=== PATIENT | female | born 1965 | race Caucasian/White ===

== ENCOUNTER 2017-08-22 05:25 | Emergency (ER) | payer OTHER, BC ==
[2017-08-22] MEDS ORDERED: Diltiazem 25 MG/5 ML SDV IVPUSH STA (05:53)
[2017-08-22] MEDS ORDERED: Diltiazem 125 MG in Sodium Chloride 0.9% 100 ML IV SCH (06:00)
[2017-08-22] MEDS ORDERED: Sodium Chloride 0.9% 1,000 ML ONE (06:02)
[2017-08-22] MEDS ORDERED: Sodium Chloride 0.9% 1,000 ML IV SCH (06:15)
--- NOTE | 2017-08-22 06:18 | EDM.PDOC ---
<Bg Hamm - Last Filed: 08/22/17 11:30> ED HPI GENERAL MEDICAL PROBLEM - General Chief Complaint: Cardiovascular Problem Stated Complaint: sob rapid heart beat Time Seen by Provider: 08/22/17 05:41 - Related Data Allergies Allergy/AdvReac Type Severity Reaction Status Date / Time cephalexin [From Keflex] Allergy Cannot Verified 08/22/17 05:31 Remember Sulfa (Sulfonamide Allergy Cannot Verified 08/22/17 05:31 Antibiotics) Remember Home Meds: Home Meds Apixaban [Eliquis] 5 mg PO BID 08/22/17 [History] Flecainide Acetate 50 mg PO BID 08/22/17 [History] Levothyroxine [Synthroid] 50 mcg PO DAILY 08/22/17 [History] Course - Vital Signs Last Recorded V/S: Last Vital Signs Temp 35.7 C 08/22/17 05:32 Pulse 87 08/22/17 08:35 Resp 16 08/22/17 08:35 BP 119/63 08/22/17 08:35 Pulse Ox 96 08/22/17 08:35 - Orders/Labs/Meds Labs: Laboratory Tests 08/22/17 08/22/17 08/22/17 Range/Units 05:35 05:35 05:35 WBC 5.74 (3.98-10.04) K/mm3 RBC 4.70 (3.98-5.22) M/mm3 Hgb 13.9 (11.2-15.7) gm/L Hct 41.2 (34.1-44.9) % MCV 87.7 (79.4-94.8) fl MCH 29.6 (25.6-32.2) pg MCHC 33.7 (32.2-35.5) g/dl RDW Std Deviation 41.1 (36.4-46.3) fL Plt Count 276 (182-369) K/mm3 MPV 10.0 (9.4-12.3) fl Neutrophils % (Manual) 69 H (40-60) % Band Neutrophils % 0 (0-10) % Lymphocytes % (Manual) 26 (20-40) % Atypical Lymphs % 0 % Monocytes % (Manual) 3 (2-10) % Eosinophils % (Manual) 2 (0.7-5.8) % Basophils % (Manual) 0 L (0.1-1.2) Platelet Estimate Adequate RBC Morph Comment Normal PT 9.6 (8.0-13.0) SECONDS INR 0.89 APTT 28 (22-36) SECONDS D-Dimer, Quantitative 1.18 H (0.19-0.59) mg/L Sodium 143 (136-145) mEq/L Potassium 3.7 (3.5-5.1) mEq/L Chloride 106 (98-107) mEq/L Carbon Dioxide 28 (21-32) mEq/L Anion Gap 12.7 (5-15) BUN 24 H (7-18) mg/dL Creatinine 1.1 H (0.55-1.02) mg/dL Est Cr Clr Drug Dosing 57.28 mL/min Estimated GFR (MDRD) 53 (>60) mL/min BUN/Creatinine Ratio 21.8 H (14-18) Glucose 105 (74-106) mg/dL Calcium 9.6 (8.5-10.1) mg/dL Total Bilirubin 0.2 (0.2-1.0) mg/dL AST 30 (15-37) U/L ALT 38 (14-59) U/L Alkaline Phosphatase 113 (46-116) U/L Troponin I < 0.017 (0.00-0.056) ng/mL NT-Pro-B Natriuret Pep 113 (0-125) pg/mL Total Protein 7.9 (6.4-8.2) g/dl Albumin 3.9 (3.4-5.0) g/dl Globulin 4.0 gm/dL Albumin/Globulin Ratio 1.0 (1-2) Meds: Medications Discontinued Medications Generic Name Dose Route Start Last Admin Trade Name Freq PRN Reason Stop Dose Admin Diltiazem HCl 10 mg 08/22/17 05:53 08/22/17 06:02 Diltiazem IVPUSH 08/22/17 05:54 10 mg ONETIME STA Administration Diltiazem HCl 125 mg/ Sodium 125 mls @ 10 mls/hr 08/22/17 06:00 08/22/17 06: 08 Chloride IV 10 mg/hr TITRATE BRITTANY 10 mls/hr Protocol Administration 10 MG/HR Sodium Chloride Confirm 08/22/17 06:02 08/22/17 06:11 Normal Saline Administered 08/22/17 06:03 Not Given Dose 1,000 mls @ as directed .ROUTE .STK-MED ONE Sodium Chloride 1,000 mls @ 50 mls/hr 08/22/17 06:15 08/22/17 06:11 Normal Saline IV 50 mls/hr ASDIRECTED [facility] Administration - Re-Assessments/Exams Free Text/Narrative Re-Assessment/Exam: 08/22/17 09:31 : Cardiazem drip will be discontinued she remains in the 80s. See how she does without the medication 08/22/17 11:05 ; She remained fine in the 80s and low 90s while lying. However when I stood up she immediately went to the 06/11/29 area. I therefore did speak with her hat cleaner Dr. Og Arrington at [facility] in [place] and he recommended starting her back on low-dose metoprolol. We discussed this at the previous usage of this medication precipitated severe headaches and the patient couldn't tolerate the medication. I therefore faxed him a copy of the ECG and after looking at it he agreed that the QT interval was okay and that she could tolerate the increased dose of flexion 9-100 mg twice daily. Therefore she took a next dose 50 mg while in the ED. Departure - Departure Time of Disposition: 11:15 Disposition: Home, Self-Care 01 Condition: Fair Clinical Impression: Atrial fibrillation with RVR Instructions: Atrial Fibrillation, [id number] Referrals: Katy Wolfe MD [Primary Care Provider] - Forms: ED Department Discharge, ED Return to Work/School Form Additional Instructions: Evaluation the emergency room overnight in regards to development of palpitations after finishing work today and recurrence of age fibrillation identified on ECG with rates up as high as 1 35/m. Rate came under good control with Cardizem drip intravenously. We stopped the medication for now and you remained in the 80s and 90s while at rest. However soon as used to that by bedside heart rate went up to 125-1 35/m. I therefore spoke with your hat cleaner Dr. Burden and he recommends increasing your Flecainide to 100 mg twice daily to bring rate under control. As you indicated you a follow-up appoint with him next Friday. 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 She is unable to describe palpitations, other than an awareness of her heartbeat. She states that she had similar symptoms in the past - she was diagnosed with atrial fibrillation in July 2016. A transesophageal echocardiogram demonstrated a left atrial appendage thrombus. The patient was started on Eliquis and flecainide. She missed some doses of these around a month ago, but none recently. She states that she has not had any episodes of atrial fibrillation since she was started on the flecainide. The patient states that she stands a lot at work. The patient's PCP is Dr. Wolfe in [place]. Her Lap Maker is Dr. Scott. 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 ARTIST History: Reports: Musculoskeletal History: Reports: Back Pain, Chronic (DDD), Osteoarthritis Psychiatric History: Reports: Depression (untreated) Endocrine/Metabolic History: Reports: Hypothyroidism, Obesity/BMI 30+ - Past Surgical History HEENT Surgical History: Reports: Tonsillectomy GI Surgical History: Reports: Cholecystectomy, Hernia, Abdominal (umbilical) Female Surgical History: Reports: Section (x 1), Hysterectomy, Salpingo-Oophorectomy Neurological Surgical History: Reports: C-Spine (ACDF), Lumbar Spine (x 7; L2- S2 fused) Musculoskeletal Surgical History: Reports: Knee Replacement (left), Other (See Below) (Left thumb repair) Social & Family History - Tobacco Use Smoking Status *Q: Never Smoker - Alcohol Use Alcohol Use History: Yes Alcohol Use Frequency: Rarely - Recreational Drug Use Recreational Drug Use: No - Living Situation & Occupation Living situation: Reports: , with Family Occupation: Employed ([employer]) ED ROS GENERAL - Review of Systems Review Of Systems: See Below Constitutional: Reports: No Symptoms HEENT: Reports: Other (Viral URI symptoms x 3 days) Respiratory: Reports: No Symptoms Cardiovascular: Reports: No Symptoms Endocrine: Reports: No Symptoms GI/Abdominal: Reports: No Symptoms : Reports: No Symptoms Musculoskeletal: Reports: No Symptoms Skin: Reports: No Symptoms Neurological: Reports: No Symptoms Psychiatric: Reports: No Symptoms Hematologic/Lymphatic: Reports: No Symptoms Immunologic: Reports: No Symptoms ED EXAM, GENERAL - Physical Exam Exam: See Below Exam Limited By: No Limitations General Appearance: Alert, WD/WN, No Apparent Distress Eye Exam: Bilateral Eye: Normal Inspection Ears: Normal External Exam, Hearing Grossly Normal Nose: Normal Inspection, No Blood Throat/Mouth: Normal Inspection, Normal Lips, Normal Voice, No Airway Compromise Head: Atraumatic, Normocephalic Neck: Normal Inspection, Full Range of Motion Respiratory/Chest: No Respiratory Distress, Lungs Clear, Normal Breath Sounds, No Accessory Muscle Use Cardiovascular: Normal Peripheral Pulses, Regular Rate, Rhythm (A-fib ion the monitor, but too fast to discern irregularity), No Edema, No Gallop, No JVD, No Murmur, No Rub, Tachycardia Peripheral Pulses: 4+: Radial (L), Radial (R) GI/Abdominal: Normal Bowel Sounds, Soft, Non-Tender, No Organomegaly, No Distention, No Abnormal Bruit, No Mass, Other (Obese) (Female) Exam: Deferred Rectal (Female) Exam: Deferred Back Exam: Normal Inspection, Full Range of Motion, NT Extremities: Normal Inspection, Normal Range of Motion, No Pedal Edema, Normal Capillary Refill Neurological: Alert, Oriented, Normal Cognition, No Motor/Sensory Deficits Psychiatric: Normal Affect Skin Exam: Warm, Dry, Intact, Normal Color, No Rash EKG INTERPRETATION EKG Date: 08/22/17 Time: 05:34 Rhythm: A-Fib Rate (Beats/Min): 145 [place]: Normal P-Wave: Absent QRS: Normal ST-T: Normal QT: Normal Comparison: NA - No Prior EKG Course - Orders/Labs/Meds Labs: Laboratory Tests 08/22/17 08/22/17 08/22/17 Range/Units 05:35 05:35 05:35 WBC 5.74 (3.98-10.04) K/mm3 RBC 4.70 (3.98-5.22) M/mm3 Hgb 13.9 (11.2-15.7) gm/L Hct 41.2 (34.1-44.9) % MCV 87.7 (79.4-94.8) fl MCH 29.6 (25.6-32.2) pg MCHC 33.7 (32.2-35.5) g/dl RDW Std Deviation 41.1 (36.4-46.3) fL Plt Count 276 (182-369) K/mm3 MPV 10.0 (9.4-12.3) fl Neutrophils % (Manual) 69 H (40-60) % Band Neutrophils % 0 (0-10) % Lymphocytes % (Manual) 26 (20-40) % Atypical Lymphs % 0 % Monocytes % (Manual) 3 (2-10) % Eosinophils % (Manual) 2 (0.7-5.8) % Basophils % (Manual) 0 L (0.1-1.2) Platelet Estimate Adequate RBC Morph Comment Normal PT 9.6 (8.0-13.0) SECONDS INR 0.89 APTT 28 (22-36) SECONDS D-Dimer, Quantitative 1.18 H (0.19-0.59) mg/L Sodium 143 (136-145) mEq/L Potassium 3.7 (3.5-5.1) mEq/L Chloride 106 (98-107) mEq/L Carbon Dioxide 28 (21-32) mEq/L Anion Gap 12.7 (5-15) BUN 24 H (7-18) mg/dL Creatinine 1.1 H (0.55-1.02) mg/dL Est Cr Clr Drug Dosing 57.28 mL/min Estimated GFR (MDRD) 53 (>60) mL/min BUN/Creatinine Ratio 21.8 H (14-18) Glucose 105 (74-106) mg/dL Calcium 9.6 (8.5-10.1) mg/dL Total Bilirubin 0.2 (0.2-1.0) mg/dL AST 30 (15-37) U/L ALT 38 (14-59) U/L Alkaline Phosphatase 113 (46-116) U/L Troponin I < 0.017 (0.00-0.056) ng/mL NT-Pro-B Natriuret Pep 113 (0-125) pg/mL Total Protein 7.9 (6.4-8.2) g/dl Albumin 3.9 (3.4-5.0) g/dl Globulin 4.0 gm/dL Albumin/Globulin Ratio 1.0 (1-2) - Re-Assessments/Exams Free Text/Narrative Re-Assessment/Exam: 08/22/17 06:40 Two-view chest radiograph appears to be grossly normal. Cardiac silhouette is within normal limits. No pulmonary vascular congestion. No pleural effusions. No focal infiltrate. No pneumothorax. Formal read per the Radiologist pending. 08/22/17 07:00 Following Cardizem IV push and drip, the patient's heart rate is now around 100. Case discussed with Dr. Dunlap, who will come by and evaluate the patient before accepting. 08/22/17 08:[address] Dunlap. Before admitting the patient, she would like the patient to receive her morning dose of Flecainide, then wait a couple of hours to see if the patient converts to a normal sinus rhythm. If she does, then an admission can be avoided. Case then discussed with Dr. Hamm, and care of the patient turned over to him at this time, for change of shift.
--- NOTE | 2017-08-22 07:19 | CR ---
Chest: Two views of the chest were obtained. Comparison: Previous chest x-ray of 09/21/11. Heart size and mediastinum are normal. Lungs are clear. Previous cervical spine surgery is noted. Bony structures are otherwise unremarkable. Surgical clips are seen within the upper abdomen. Impression: 1. Incidental findings. Nothing acute is appreciated on two-view chest x-ray. Diagnostic code #2
== END 2017-08-22 11:41 | disposition home or self-care (01) ==
LOC: JD.ED 05:25
DX: I48.91 Unspecified atrial fibrillation (principal); Z88.1 Allergy status to other antibiotic agents; Z88.2 Allergy status to sulfonamides; Z79.01 Long term (current) use of anticoagulants
CPT/HCPCS: 36415; 71020; 80053; 83880; 84484; 85025; 85379; 85610; 85730; 93005; 96361; 96365; 96366; 96376; 99285; J3490; J7030; J7040; 93010

== ENCOUNTER 2017-10-04 05:17 | Emergency (ER) | payer OTHER, BC ==
[2017-10-04] MEDS ORDERED: Acetaminophen Soln 650 MG/20.3 ML UD Cup PO ONE (06:00)
--- NOTE | 2017-10-04 06:07 | EDM.PDOC ---
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 She states that the pain is all over her left shoulder, and is made worse with any attempt to move her shoulder. No prior left shoulder injury. No trauma to the shoulder, such as something falling or hitting it. The patient has paroxysmal atrial fibrillation and is on Eliquis. She states that her Vibration Technician has instruct her to not take NSAIDs. 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: Musculoskeletal History: Reports: Back Pain, Chronic, Osteoarthritis Other Musculoskeletal History: Spinal fusion and cervical spine fusion Psychiatric History: Reports: Depression Endocrine/Metabolic History: Reports: Hypothyroidism, Obesity/BMI 30+ - Past Surgical History HEENT Surgical History: Reports: Tonsillectomy GI Surgical History: Reports: Cholecystectomy, Hernia, Abdominal Female Surgical History: Reports: Section, Hysterectomy, Salpingo- Oophorectomy Neurological Surgical History: Reports: C-Spine, Lumbar Spine Musculoskeletal Surgical History: Reports: Knee Replacement, Other (See Below) Social & Family History - Family History Family Medical History: Noncontributory - Tobacco Use Smoking Status *Q: Never Smoker - Recreational Drug Use Recreational Drug Use: No - Living Situation & Occupation Living situation: Reports: , with Family Occupation: Employed ([employer]) Review of Systems - Review of Systems Review Of Systems: ROS reveals no pertinent complaints other than HPI. ED EXAM, GENERAL - Physical Exam Exam: See Below Exam Limited By: No Limitations General Appearance: Alert, WD/WN, No Apparent Distress Extremities: Other (No visible abnormality to the left shoulder, such as swelling, erythema, ecchymosis, or abrasion. There is tenderness to palpation across the entire left shoulder. Significant pain is induced with attempts at abduction against resistance, but also with adduction against resistance. Less pain is induced with attempts at flexion, extension, internal rotation, and external rotation against resistance. Pain is also induced with PROM when the arm is brought up above shoulder height. Neurovascular status of the left upper extremity is intact.) Course - Vital Signs Last Recorded V/S: Last Vital Signs Temp 37.0 C 10/04/17 05:26 Pulse 69 10/04/17 05:26 Resp 16 10/04/17 05:26 BP 118/50 L 10/04/17 05:26 Pulse Ox 92 L 10/04/17 05:26 - Orders/Labs/Meds Orders: Active Orders 24 hr Category Date Time Status Acetaminophen [Tylenol] Med 10/04/17 06:00 Once 650 mg PO ONETIME ONE Medication Orders Acetaminophen (Tylenol) 650 mg PO ONETIME ONE Stop: 10/04/17 06:01 Meds: Medications Generic Name Dose Route Start Last Admin Trade Name Felipeq PRN Reason Stop Dose Admin Acetaminophen 650 mg 10/04/17 06:00 Tylenol PO 10/04/17 06:01 ONETIME ONE - Re-Assessments/Exams Free Text/Narrative Re-Assessment/Exam: 10/04/17 06:02 The patient presents with left shoulder pain that developed tonight while lowering boxes of candy from an upper shelf to a lower shelf while at work. On examination, she has entire left shoulder tenderness that is not a focal. Pain is induced primarily with abduction of the shoulder, however, she also has pain with adduction and even with passive range of motion when I lift her arm above shoulder height. I am not aware of any particular type of injury that could explain these findings - the closest that I can come to is deltoid muscle strain. For today's purposes, I am recommending that she take [id number] Tylenol (she has been told that she should not take ibuprofen), and if her pain continues, then have her follow-up with Ortho next week. As there was no trauma to the shoulder, and x-ray would be of no use. If an imaging study is required, it would be a MRI. Departure - Departure Time of Disposition: 06:04 Disposition: Home, Self-Care 01 Condition: Good Clinical Impression: Strain of left deltoid muscle - Discharge Information Referrals: PCP,Not In Area [Primary Care Provider] - Chaz Velasquez MD [Physician] - Additional Instructions: You were seen in the emergency room for left shoulder pain that developed at work when you were lowering boxes of candy from an upper shelf to a lower shelf. The exact cause of your shoulder pain is not clear, however, you have MOST LIKELY strained your left deltoid muscle. Take [id number] Tylenol as needed for discomfort. Minimize the use of your left shoulder over the next few days. A work restrictions form has been filled out. If your pain continues, please follow-up with the Orthopedic Surgeon Dr. Velasquez next week. If any other problems, please do not hesitate to return to the ER. - My Orders Last 24 Hours: My Active Orders 10/04/17 06:00 Acetaminophen [Tylenol] 650 mg PO ONETIME ONE - Assessment/Plan Last 24 Hours: My Active Orders 10/04/17 06:00 Acetaminophen [Tylenol] 650 mg PO ONETIME ONE
== END 2017-10-04 06:18 | disposition home or self-care (01) ==
LOC: JD.ED 05:17
DX: S46.812A Strain of other muscles, fascia and tendons at shoulder and upper arm level, left arm, initial encounter (principal); Z88.6 Allergy status to analgesic agent; Z88.2 Allergy status to sulfonamides; Z79.899 Other long term (current) drug therapy; X58.XXXA Exposure to other specified factors, initial encounter
CPT/HCPCS: 99283; A9270; 99282

== ENCOUNTER 2017-12-06 23:37 | Emergency (ER) | payer BC, OTHER ==
[2017-12-06] MEDS ORDERED: Nitroglycerin/D5W 25 MG/250 ML BOTTLE IV SCH (23:45)
[2017-12-06] MEDS ORDERED: Aspirin 81 MG Tab.Chew PO ONE (23:59)
--- NOTE | 2017-12-07 00:01 | EDM.PDOC ---
ED HPI GENERAL MEDICAL PROBLEM - General Chief Complaint: Chest Pain Stated Complaint: CHEST PAINS Time Seen by Provider: 12/06/17 23:57 Source of Information: Reports: Patient History Limitations: Reports: No Limitations - History of Present Illness INITIAL COMMENTS - FREE TEXT/NARRATIVE: 52-year-old female presents the ED with retrosternal chest pain that kind of comes and goes i.e. spastic component since about 1800 hrs. last evening. He was present before she had supper last night. She has no difficulty swallowing. Pain is about the same now as it was 6 hours ago. She has a history of intermittent atrial fibrillation and apparently did have an intramural clot on one of her valves in the past. It's unclear whether she had pulmonary embolism. She remains on Eliquis and has not missed any doses. She is aware of a fluttering sensation in her chest. She's had previous cholecystectomy she has a known hiatal hernia. She is burping and belching but not sure that is providing any relief of the discomfort. Pain radiates through to her back intrascapular early it'll radiate up towards her throat and up into her right anterior chest at times as well. Pain again has a strong colicky or crampy spastic component she has no known coronary disease. She is a nonsmoker. Does feel a bit more short of breath than normal. Denies cough or sputum production denies fever or chills. Onset Date: 12/06/17 Onset Time: 18:00 Duration: Hour(s): Location: Reports: Chest (Epigastrium radiating up into the central chest neck at times.), Back (Him pain intrascapular early as well.) Quality: Reports: Other (Pain is constant with a colicky/spastic like component.) Improves with: Reports: None (Tums or Rolaids. Has no heartburn at this time) Worsens with: Reports: None Context: Reports: Other (Came on spontaneously.). Denies: Activity, Exercise, Lifting, Sick Contact, Trauma Associated Symptoms: Reports: Chest Pain, Shortness of Breath. 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) (None.) Chest Pain Score (Numeric/FACES): 5 - Related Data Allergies Allergy/AdvReac Type Severity Reaction Status Date / Time cephalexin [From Keflex] Allergy Cannot Verified 12/06/17 23:46 Remember Sulfa (Sulfonamide Allergy Cannot Verified 12/06/17 23:46 Antibiotics) Remember Home Meds: Home Meds Apixaban [Eliquis] 5 mg PO BID 08/22/17 [History] Flecainide Acetate 100 mg PO BID 08/22/17 [History] Levothyroxine [Synthroid] 50 mcg PO DAILY 08/22/17 [History] Docusate Sodium [Colace] 100 mg PO DAILY 10/04/17 [History] Dicyclomine [Bentyl] 20 mg PO Q6H PRN #12 tablet 12/07/17 [Rx] Past Medical History Cardiovascular History: Reports: Afib (Has intermittent or paroxysmal atrial fibrillation and is on Eliquis daily. Previously identified by transesophageal echo to have a valvular thrombus. She does not believe that she had any diagnosis of pulmonary embolism.). Denies: Hypertension [employer] History: Reports: Musculoskeletal History: Reports: Back Pain, Chronic, Osteoarthritis Other Musculoskeletal History: Spinal fusion and cervical spine fusion Psychiatric History: Reports: Depression Endocrine/Metabolic History: Reports: Hypothyroidism, Obesity/BMI 30+ - Past Surgical History HEENT Surgical History: Reports: Tonsillectomy GI Surgical History: Reports: Cholecystectomy, Hernia, Abdominal (Umbilical hernia repair) Female Surgical History: Reports: Section, Hysterectomy, Salpingo- Oophorectomy Neurological Surgical History: Reports: C-Spine, Lumbar Spine Musculoskeletal Surgical History: Reports: Knee Replacement, Other (See Below) Social & Family History - Family History Family Medical History: Noncontributory - Tobacco Use Smoking Status *Q: Never Smoker - Caffeine Use Caffeine Use: Reports: None - Recreational Drug Use Recreational Drug Use: No - Living Situation & Occupation Living situation: Reports: , with Family Occupation: Employed ([employer]) [facility] - Review of Systems Review Of Systems: See Below Constitutional: Denies: Fever, Chills, Malaise, Weakness, Fatigue, Night Sweats , Diaphoresis, Decreased Appetite, Weight Loss HEENT: Reports: No Symptoms Respiratory: Reports: Shortness of Breath. Denies: Wheezing, Pleuritic Chest Pain (mild), Cough, Sputum, Hemoptysis Cardiovascular: Reports: Chest Pain, Dyspnea on Exertion, Palpitations (At time sometimes aware of palpitations or fluttering feeling in her chest she has this at this time however the monitor shows sinus rhythm at 58/m). Denies: Blood Pressure Problem, Claudication (See history present illness), Edema, Lightheadedness, Orthopnea Endocrine: Reports: No Symptoms GI/Abdominal: Reports: Abdominal Pain (Some pain in the epigastrium that radiates up into the anterior retrosternal chest.). Denies: Constipation, Diarrhea, Decreased Appetite, Difficulty Swallowing, Distension, Flatus, Hematemesis, Hematochezia : Reports: No Symptoms Musculoskeletal: Reports: Neck Pain, Back Pain, Joint Pain, Other (Has had surgery both low back and neck.) Skin: Reports: No Symptoms (Has had right total knee replacement) Neurological: Reports: No Symptoms Psychiatric: Reports: No Symptoms Hematologic/Lymphatic: Reports: No Symptoms Immunologic: Reports: No Symptoms ED EXAM, GENERAL - Physical Exam Exam: See Below Exam Limited By: No Limitations General Appearance: Alert, WD/WN, Anxious, Mild Distress Eye Exam: Bilateral Eye: Normal Inspection (No jaundice) Head: Atraumatic, Normocephalic Neck: Normal Inspection, Supple, Non-Tender, Full Range of Motion. No: Carotid Bruit, Lymphadenopathy (L), Lymphadenopathy (R) Respiratory/Chest: No Respiratory Distress, Lungs Clear, Normal Breath Sounds, Chest Non-Tender. No: Crackles, Rales, Rhonchi, Pleural Rub, Accessory Muscle Use, Retractions Cardiovascular: Normal Peripheral Pulses, Regular Rate, Rhythm, No Edema, No Gallop, No JVD, No Murmur. No: JVD Peripheral Pulses: 2+: Posterior Tibial (L), Posterior Tibial (R), Dorsalis Pedis (L), Dorsalis Pedis (R) GI/Abdominal: Normal Bowel Sounds, Soft, Non-Tender, No Organomegaly, Other ( Multiple abdominal incisions from previous surgeries. Particularly curvilinear surgical scar above the umbilicus.) Back Exam: Normal Inspection, Full Range of Motion, Other. No: CVA Tenderness ( L) (Previous lower lumbar surgical scar appreciated), CVA Tenderness (R) Extremities: Normal Inspection, Normal Range of Motion, Non-Tender, No Pedal Edema Neurological: Alert, Oriented, CN II-XII Intact, Normal Cognition Psychiatric: Normal Affect, Normal Mood Skin Exam: Warm, Dry, Intact, Normal Color, No Rash EKG INTERPRETATION EKG Date: 12/06/17 Time: 23:50 Rhythm: NSR Rate (Beats/Min): 64 [place]: RAD-Right [place] Deviation P-Wave: Present (First-degree AV block) QRS: Other (Early R-wave transition suggesting right ventricular hypertrophy/ septal hypertrophy pattern. Decreased voltage throughout the limb leads.) ST-T: Other (Diffuse T-wave inversion V2 to be 5. B6 is not available for interpretation. Q waves present in leads 3 and aVF compatible with an old inferior wall myocardial infarction.) QT: Prolonged (Moderately prolonged) EKG Interpretation Comments: Abnormal ECG. Course - Vital Signs Last Recorded V/S: Last Vital Signs Temp 36.1 C 12/06/17 23:46 Pulse 60 12/06/17 23:46 Resp 18 12/06/17 23:46 BP 123/53 L 12/06/17 23:46 Pulse Ox 96 12/06/17 23:46 - Orders/Labs/Meds Orders: Active Orders 24 hr Category Date Time Status EKG Documentation Completion [RC] STAT Care 12/06/17 23:57 Active Oxygen Therapy [RC] ASDIRECTED Care 12/06/17 23:58 Active Chest 1V Frontal [CR] Stat Exams 12/06/17 23:57 Taken Dicyclomine [Bentyl] Med 12/07/17 01:32 Once 20 mg PO ONETIME ONE Nitroglycerin/D5W [Nitroglycerin 25 MG/D5W 250 ML] Med 12/06/17 23:45 Active 25 mg in 250 ml IV ASDIRECTED Sodium Chloride 0.9% [Normal Saline] 1,000 ml Med 12/07/17 01:15 Active IV ASDIRECTED Medication Orders Nitroglycerin/Dextrose (Nitroglycerin 25 Mg/D5w 250 Ml) 25 mg in 250 mls @ 6 mls/hr IV ASDIRECTED [facility] PRN Reason: 10 MCG/MIN Last Admin: 12/07/17 00:07 Dose: 10 mcg/min, 6 mls/hr Sodium Chloride (Normal Saline) 1,000 mls @ 999 mls/hr IV ASDIRECTED [facility] Labs: Laboratory Tests 12/06/17 12/06/17 12/06/17 Range/Units 23:53 23:53 23:53 WBC 5.17 (3.98-10.04) K/mm3 RBC 4.77 (3.98-5.22) M/mm3 Hgb 13.6 (11.2-15.7) gm/L Hct 40.4 (34.1-44.9) % MCV 84.7 (79.4-94.8) fl MCH 28.5 (25.6-32.2) pg MCHC 33.7 (32.2-35.5) g/dl RDW Std Deviation 41.3 (36.4-46.3) fL Plt Count 196 (182-369) K/mm3 MPV 10.7 (9.4-12.3) fl Neutrophils % (Manual) 53 (40-60) % Band Neutrophils % 0 (0-10) % Lymphocytes % (Manual) 28 (20-40) % Atypical Lymphs % 2 % Monocytes % (Manual) 16 H (2-10) % Eosinophils % (Manual) 0 L (0.7-5.8) % Basophils % (Manual) 1 (0.1-1.2) Toxic Granulation 1+ slight Platelet Estimate Adequate Plt Morphology Comment Normal RBC Morph Comment Normal PT 10.0 (8.0-13.0) SECONDS INR 0.94 D-Dimer, Quantitative (0.19-0.59) mg/L Sodium 139 (136-145) mEq/L Potassium 3.7 (3.5-5.1) mEq/L Chloride 102 (98-107) mEq/L Carbon Dioxide 23 (21-32) mEq/L Anion Gap 17.7 H (5-15) BUN 29 H (7-18) mg/dL Creatinine 1.0 (0.55-1.02) mg/dL Est Cr Clr Drug Dosing 63.01 mL/min Estimated GFR (MDRD) 59 (>60) mL/min BUN/Creatinine Ratio 29.0 H (14-18) Glucose 109 H (74-106) mg/dL Calcium 9.0 (8.5-10.1) mg/dL Magnesium 1.9 (1.8-2.4) mg/dl Total Bilirubin 0.3 (0.2-1.0) mg/dL AST 21 (15-37) U/L ALT 25 (14-59) U/L Alkaline Phosphatase 83 (46-116) U/L CK-MB (CK-2) 2.2 (0-3.6) ng/ml Troponin I < 0.017 (0.00-0.056) ng/mL C-Reactive Protein < 0.2 (<1.0) mg/dL NT-Pro-B Natriuret Pep (0-125) pg/mL Total Protein 7.2 (6.4-8.2) g/dl Albumin 3.9 (3.4-5.0) g/dl Globulin 3.3 gm/dL Albumin/Globulin Ratio 1.2 (1-2) 12/06/17 12/06/17 Range/Units 23:53 23:53 WBC (3.98-10.04) K/mm3 RBC (3.98-5.22) M/mm3 Hgb (11.2-15.7) gm/L Hct (34.1-44.9) % MCV (79.4-94.8) fl MCH (25.6-32.2) pg MCHC (32.2-35.5) g/dl RDW Std Deviation (36.4-46.3) fL Plt Count (182-369) K/mm3 MPV (9.4-12.3) fl Neutrophils % (Manual) (40-60) % Band Neutrophils % (0-10) % Lymphocytes % (Manual) (20-40) % Atypical Lymphs % % Monocytes % (Manual) (2-10) % Eosinophils % (Manual) (0.7-5.8) % Basophils % (Manual) (0.1-1.2) Toxic Granulation Platelet Estimate Plt Morphology Comment RBC Morph Comment PT (8.0-13.0) SECONDS INR D-Dimer, Quantitative 0.20 (0.19-0.59) mg/L Sodium (136-145) mEq/L Potassium (3.5-5.1) mEq/L Chloride (98-107) mEq/L Carbon Dioxide (21-32) mEq/L Anion Gap (5-15) BUN (7-18) mg/dL Creatinine (0.55-1.02) mg/dL Est Cr Clr Drug Dosing mL/min Estimated GFR (MDRD) (>60) mL/min BUN/Creatinine Ratio (14-18) Glucose (74-106) mg/dL Calcium (8.5-10.1) mg/dL Magnesium (1.8-2.4) mg/dl Total Bilirubin (0.2-1.0) mg/dL AST (15-37) U/L ALT (14-59) U/L Alkaline Phosphatase (46-116) U/L CK-MB (CK-2) (0-3.6) ng/ml Troponin I (0.00-0.056) ng/mL C-Reactive Protein (<1.0) mg/dL NT-Pro-B Natriuret Pep 54 (0-125) pg/mL Total Protein (6.4-8.2) g/dl Albumin (3.4-5.0) g/dl Globulin gm/dL Albumin/Globulin Ratio (1-2) Meds: Medications Generic Name Dose Route Start Last Admin Trade Name Freq PRN Reason Stop Dose Admin Nitroglycerin/Dextrose 25 mg in 250 mls @ 6 mls/hr 12/06/17 23:45 12/07/17 00 :07 Nitroglycerin 25 Mg/D5w 250 Ml IV 10 mcg/min ASDIRECTED BRITTANY 6 mls/hr 10 MCG/MIN Administration Sodium Chloride 1,000 mls @ 999 mls/hr 12/07/17 01:15 Normal Saline IV ASDIRECTED BRITTANY Discontinued Medications Generic Name Dose Route Start Last Admin Trade Name Freq PRN Reason Stop Dose Admin Aspirin 324 mg 12/06/17 23:59 12/07/17 00:01 Aspirin PO 12/07/17 00:00 324 mg ONETIME ONE Administration Aspirin Confirm 12/07/17 00:04 12/07/17 00:04 Aspirin Administered 12/07/17 00:05 Not Given Dose 324 mg .ROUTE .STK-MED ONE Al Hydroxide/Mg Hydroxide 30 0 ml 12/07/17 01:01 12/07/17 01:09 ml/ Lidocaine HCl 15 ml PO 12/07/17 01:02 45 ml ONETIME ONE Administration Hyoscyamine 0.125 mg 12/07/17 00:58 12/07/17 01:04 Hyomax-Sl SL 12/07/17 00:59 0.125 mg ONETIME ONE Administration Sodium Chloride Confirm 12/07/17 00:04 12/07/17 00:11 Normal Saline Administered 12/07/17 00:05 Not Given Dose 1,000 mls @ as directed .ROUTE .STK-MED ONE Sodium Chloride 1,000 mls @ 100 mls/hr 12/07/17 00:15 12/07/17 00:10 Normal Saline IV 100 mls/hr ASDIRECTED BRITTANY Administration - Radiology Interpretation Free Text/Narrative:: 52-year-old female presents to the ED with retrosternal chest heaviness with a sharp stabbing colicky spastic component at times for the last 6-1/2 hours. Seems to start in her epigastrium and radiated up towards her neck. It is moving around a bit right anterior upper chest and into her intrascapular area over her back at times. Burping and belching doesn't seem to help. She is not aware of any heartburn per se. She has a known hiatal hernia and does take Prilosec daily. She has a history of paroxysmal atrial fibrillation and is on aliquots daily. Previous intramural thrombus on a valve in her heart when she was diagnosed with paroxysmal atrial fibrillation. ECG done in the ED reveals sinus rhythm at 64/m. There is a first-degree AV block a right axis deviation. There is early R-wave transition suggesting right ventricular hypertrophy or septal hypertrophy pattern. There is T-wave inversion from V2 to V5. B6 was not available for interpretation. Therefore I cannot rule out anterior lateral ischemia. QT is moderately prolonged likely due to being on flecainide. There is decreased voltage throughout the limb leads. There are Q waves in leads 3 and aVF compatible with an old inferior wall myocardial infarction. - Re-Assessments/Exams Free Text/Narrative Re-Assessment/Exam: 12/07/17 00:46 chest x-ray done portably is likely magnified. It suggests mild cardiomegaly and mild diffuse vascular congestion. Plan she will be treated as if she is a myocardial infarction until otherwise normal. My initial impression is is likely of esophageal or hiatal hernia origin. Pain is a 1 minutes more intermittent with a sharp stabbing component to it. Started on nitroglycerin at 10 mcg/m. Given aspirin 324 mg chewed. We'll try and obtain other ECGs for comparison purposes from [facility] in [place]. 12/07/17 00:59 still experiencing intermittent sharp spastic type pain central chest. We'll try Levsin 0.125 mg sublingually that this is ineffectual will give a GI cocktail. 12/07/17 01:01 Labs are revealing a normal white count at 5.17. Differential reveals 53% neutrophils no bands 2% atypical lymphocytes reported. Hemoglobin is 13.6 with hematocrit of 40.4. Platelet count is normal 196,000. PT is 10.0 with an INR of 0.94 d-dimer is normal at 0.20. Sodium is 139 potassium is 3.7. Chloride 102 bicarbonate is 23. Anion gap is still elevated at 17.7. BUN is 29. Creatinine is 1.0. BUN is 29 glucose 109. Calcium 9.0. Magnesium normal 1.9 liver function normal cardiac markers show a CK-MB fraction of 2.2 troponin I is less than 0.017. C-reactive protein is less than 0.2. BNP is normal at 54. 12/07/17 01:01 since the initial cardiac enzymes are normal after 6 hours of pain she is considered a cardiac rule out. Pain is GI in origin likely esophageal spasm versus hiatal hernia. I will give her a GI cocktail at this time to see if it alleviates her pain. 12/07/17 01:32 has had very little pain since the GI cocktail was ingested. I will therefore give her Bentyl 20 mg by mouth and discharge her to home. Strongly suspect esophageal spasm likely secondary to hiatal hernia as a cause of her pain. I will write a prescription for Bentyl 20 mg tabs 12 to have on hand and utilize when necessary for similar type pain. Departure - Departure Time of Disposition: 01:33 Disposition: Home, Self-Care 01 Condition: Fair Clinical Impression: Non-cardiac chest pain, Esophageal spasm Prescriptions: Dicyclomine [Bentyl] 20 mg PO Q6H PRN #12 tablet PRN Reason: Abdominal cramps/diarrhea Referrals: Katy Wolfe MD [Primary Care Provider] - Forms: ED Department Discharge Additional Instructions: Evaluation the emergent tonight in regards to epigastric retrosternal chest pain rating up into the neck throat and right upper anterior chest and through to your mid back for at least 6 hours. No associated shortness of breath. ECG reveals no changes when compared to previous ECG dated August 222016. Chest x-ray was within normal limits. All the lab tests were negative for any heart related illness or blood clots. No sign of any abnormalities as far as liver kidneys etc. The pain clinically is that of esophageal spasm or a hiatal hernia right at the juncture of the food pipe were close to the diaphragm into your stomach. It is likely the fluttering feeling that you are expressing is due to diaphragm irritation and fluttering of the diaphragm. There is no evidence of fluttering of the heart during normal sinus rhythm at the time of today's exam. You initially treated for potential cardiac disease due to your history but in light of normal heart markers over 6 hours the heart is not related to this current problem. GI cocktail seemed to alleviate the esophageal spasm pain a good deal. You are given Bentyl 20 mg by mouth before you left the hospital which will take about an hour to work but hopefully the last 6 or 8 hours to relieve further esophageal spasm and/or pain from hiatal hernia. I also wrote a prescription for the same type of medication that can be used on a when necessary as needed basis for similar type pain. Of course further weight reduction might help reduce the frequency of this type of pain. Continue Prilosec 20 mg once daily at bedtime as you have been doing. Will up with personal doctor if any further problems occur - My Orders Last 24 Hours: My Active Orders 12/06/17 23:45 Nitroglycerin/D5W [Nitroglycerin 25 MG/D5W 250 ML] 25 mg in 250 ml IV ASDIRECTED 12/06/17 23:57 EKG Documentation Completion [RC] STAT Chest 1V Frontal [CR] Stat 12/06/17 23:58 Oxygen Therapy [RC] ASDIRECTED 12/07/17 01:15 Sodium Chloride 0.9% [Normal Saline] 1,000 ml IV ASDIRECTED 12/07/17 01:32 Dicyclomine [Bentyl] 20 mg PO ONETIME ONE - Assessment/Plan Last 24 Hours: My Active Orders 12/06/17 23:45 Nitroglycerin/D5W [Nitroglycerin 25 MG/D5W 250 ML] 25 mg in 250 ml IV ASDIRECTED 12/06/17 23:57 EKG Documentation Completion [RC] STAT Chest 1V Frontal [CR] Stat 12/06/17 23:58 Oxygen Therapy [RC] ASDIRECTED 12/07/17 01:15 Sodium Chloride 0.9% [Normal Saline] 1,000 ml IV ASDIRECTED 12/07/17 01:32 Dicyclomine [Bentyl] 20 mg PO ONETIME ONE
[2017-12-07] MEDS ORDERED: Sodium Chloride 0.9% 1,000 ML ONE (00:04)
[2017-12-07] MEDS ORDERED: Aspirin 81 MG Tab.Chew ONE (00:04)
[2017-12-07] MEDS ORDERED: Sodium Chloride 0.9% 1,000 ML IV SCH ×2 (00:15→01:15)
[2017-12-07] MEDS ORDERED: Hyoscyamine 0.125 MG Tab.SL SL ONE (00:58)
[2017-12-07] MEDS ORDERED: Alum Hydrox/Mag Hydrox/Simeth 30 ML, Lidocaine 2% 15 ML PO ONE ×2 (01:01)
[2017-12-07] MEDS ORDERED: Dicyclomine 10 MG Cap PO ONE (01:32)
--- NOTE | 2017-12-07 11:53 | CR ---
Chest: Portable view of the chest was obtained. Comparison: Prior chest x-ray of 08/22/17. Heart size and mediastinum are within normal limits for portable technique. Lungs are clear. Previous cervical spine surgery is noted. Previous lumbar spine surgery is also partially visualized. Impression: 1. Incidental findings. Nothing acute is appreciated on portable chest x-ray. Diagnostic code #2
== END 2017-12-07 01:50 | disposition home or self-care (01) ==
LOC: JD.ED 23:37
DX: K22.4 Dyskinesia of esophagus (principal); I48.91 Unspecified atrial fibrillation; F32.9 Major depressive disorder, single episode, unspecified; E03.9 Hypothyroidism, unspecified; Z79.899 Other long term (current) drug therapy; Z88.2 Allergy status to sulfonamides; Z88.1 Allergy status to other antibiotic agents
CPT/HCPCS: 36415; 71045; 80053; 82553; 83735; 83880; 84484; 85025; 85379; 85610; 86140; 93005; 96365; 99285; A9270; J7040; 93010; 99284-25

== ENCOUNTER 2019-10-14 07:55 | Emergency (ER) | payer BC ==
--- NOTE | 2019-10-14 08:28 | EDM.PDOC ---
ED HPI GENERAL MEDICAL PROBLEM - General Chief Complaint: Respiratory Problem Stated Complaint: COUGHING Time Seen by Provider: 10/14/19 08:12 Source of Information: Reports: Patient History Limitations: Reports: No Limitations - History of Present Illness INITIAL COMMENTS - FREE TEXT/NARRATIVE: 54 year old female presents to the clinic with paroxysmal ,minimally productive cough for 8-9 days. initial illnes started Oct 04 with fever and chills and loss of appetitis with cough --suggestive of influenza. Started Amoxil 2 days ago and now has diarrhea. Appetitis is better. No fever for 4 days. Weak and tired from coughing all night long. Onset: Sudden Onset Date: 10/04/19 (Initial onset of fever chills headache and paroxysmal cough October 04. Seen in the walk-in clinic and told she had a viral infection.) Duration: Day(s):, Constant (Lucho paroxysmal cough disrupting her sleep), Other (. poor appetite and no development of loose diarrhea stools 2 days since starting amoxicillin. ) Location: Reports: Chest, Other (Hoarseness ear pain) Quality: Reports: Ache Severity: Moderate (Antral chest) Improves with: Reports: None Worsens with: Reports: Other (Coughing) Context: Denies: Activity, Exercise, Lifting, Sick Contact, Trauma, Other Associated Symptoms: Reports: Chest Pain ( severe paroxysmal cough interrupting her sleep.), Cough (Intermittent sputum production), cough w sputum, Diaphoresis , Fever/Chills, Headaches, Loss of Appetite (With initial onset of illness not much now.), Malaise ( Update is slowly starting to come back.), Other ( Development of diarrhea the last 2 days since starting amoxicillin.). Denies: No Other Symptoms ( antral chest pain from coughing so much.), Confusion Treatments TECHNOLOGY ASSISTANT: Reports: Acetaminophen, NSAIDS (Advil.) Right Flank Pain Score (Numeric/FACES): 6 - Related Data Allergies Allergy/AdvReac Type Severity Reaction Status Date / Time adhesive tape Allergy Rash Verified 10/14/19 08:09 cephalexin [From Keflex] Allergy Cannot Verified 10/14/19 08:09 Remember clindamycin Allergy Hives Verified 10/14/19 08:09 Sulfa (Sulfonamide Allergy Cannot Verified 10/14/19 08:09 Antibiotics) Remember Home Meds: Home Meds Apixaban [Eliquis] 5 mg PO BID 08/22/17 [History] Flecainide Acetate 100 mg PO BID 08/22/17 [History] Levothyroxine [Synthroid] 50 mcg PO DAILY 08/22/17 [History] Docusate Sodium [Colace] 100 mg PO DAILY 10/04/17 [History] DULoxetine [Cymbalta] 90 mg PO DAILY 09/18/18 [History] Cholecalciferol (Vitamin D3) [Vitamin D3] 1,000 unit PO BEDTIME #30 tablet 09/19 [Rx] Omeprazole Magnesium [Prilosec Otc] 20 mg PO DAILY 11/12/18 [History] atorvaSTATin Calcium [Lipitor] 40 mg PO DAILY 11/12/18 [History] Doxycycline [Vibramycin] 100 mg PO BID #20 cap 10/14/19 [Rx] Hydrocodone/Chlorphen P-Stirex [Hydrocodone-Chlorphen ER Susp] 5 ml PO Q12H PRN #60 ml 10/14/19 [Rx] predniSONE [Prednisone] 20 mg PO BID #10 tablet 10/14/19 [Rx] Past Medical History Cardiovascular History: Reports: Afib, High Cholesterol Respiratory History: Reports: Asthma Gastrointestinal History: Reports: GERD, Hiatal Hernia Other 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 History: hx of bladder infections 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: Musculoskeletal History: Reports: Back Pain, Chronic, Fibromyalgia, Osteoarthritis Other Musculoskeletal History: Spinal fusion and cervical spine fusion Psychiatric History: Reports: Depression Endocrine/Metabolic History: Reports: Hypothyroidism, Obesity/BMI 30+, Vitamin D Deficiency - Infectious Disease History Infectious Disease History: Reports: Chicken Pox - Past Surgical History HEENT Surgical History: Reports: Oral Surgery, Tonsillectomy GI Surgical History: Reports: Cholecystectomy, Hernia, Abdominal Female Surgical History: Reports: Section, Hysterectomy, Salpingo- Oophorectomy Neurological Surgical History: Reports: C-Spine, Lumbar Spine Musculoskeletal Surgical History: Reports: Knee Replacement Social & Family History - Family History Family Medical History: Noncontributory Respiratory: Reports: COPD Musculoskeletal: Reports: Other (See Below) Other Musculoskeletal Family History: brother has MS Endocrine/Metabolic: Reports: Diabetes, Type I Oncologic: Reports: Lung Other Oncologic Family History: mother of lung cancer - Tobacco Use Smoking Status *Q: Never Smoker Second Hand Smoke Exposure: No - Caffeine Use Caffeine Use: Reports: Coffee - Recreational Drug Use Recreational Drug Use: No - Living Situation & Occupation Living situation: Reports: , with Family (Father, sister) Occupation: Employed ([employer]) ED ROS GENERAL - Review of Systems Review Of Systems: See Below Constitutional: Reports: Malaise, Weakness, Fatigue, Decreased Appetite. Denies : Fever, Chills HEENT: Reports: Ear Pain (Bilateral sharp stabbing ear pain.), Other (Very hoarse voice.) Respiratory: Reports: Cough (Severe paroxysmal.), Sputum. Denies: Wheezing, Pleuritic Chest Pain, Hemoptysis, Other Cardiovascular: Reports: Chest Pain (Ventral chest pain from coughing so much.) , Dyspnea on Exertion, Lightheadedness. Denies: Blood Pressure Problem, Claudication, Edema, Orthopnea, Palpitations Endocrine: Reports: Fatigue GI/Abdominal: Reports: Diarrhea (Developed diarrhea the last day and a half), Decreased Appetite ( loose and semi-formed. No blood.) : Reports: No Symptoms Musculoskeletal: Reports: No Symptoms Skin: Reports: No Symptoms Neurological: Reports: Dizziness (With standing.) Psychiatric: Reports: Depression Hematologic/Lymphatic: Reports: No Symptoms (On Cymbalta.) Immunologic: Reports: No Symptoms ED EXAM, GENERAL - Physical Exam Exam: See Below Exam Limited By: No Limitations General Appearance: Alert, WD/WN, No Apparent Distress, Other (Patient is cool and clammy to touch. Temperatures 36.3. Heart rate was 62 and sinus. She has a history of paroxysmal atrial flutter. Respiratory is 19 with sats of 98%. EP 118 /62.) Eye Exam: Bilateral Eye: Normal Inspection, PERRL Ears: Normal TMs Throat/Mouth: Normal Inspection, Normal Lips, Normal Teeth, Normal Oropharynx Head: Atraumatic, Normocephalic Neck: Normal Inspection, Supple, Non-Tender, Full Range of Motion. No: Carotid Bruit, Lymphadenopathy (L), Lymphadenopathy (R), Thyromegaly Respiratory/Chest: No Respiratory Distress, Lungs Clear, Normal Breath Sounds, No Accessory Muscle Use, Other. No: Crackles, Rales, Rhonchi, Wheezing Cardiovascular: Normal Peripheral Pulses, Regular Rate, Rhythm, No Edema, No Gallop, No Murmur (Paroxysmal cough which is relatively nonproductive.), No Rub Peripheral Pulses: 2+: Posterior Tibial (L), Posterior Tibial (R), Dorsalis Pedis (L), Dorsalis Pedis (R) GI/Abdominal: Normal Bowel Sounds, Soft, Non-Tender, No Organomegaly, No Abnormal Bruit, No Mass, Pelvis Stable Back Exam: Normal Inspection, Full Range of Motion. No: CVA Tenderness (L), CVA Tenderness (R) Extremities: Normal Inspection, Normal Range of Motion, Non-Tender, No Pedal Edema Neurological: Alert, Oriented, CN II-XII Intact, Normal Cognition, Normal Gait Psychiatric: Normal Affect, Normal Mood Skin Exam: Intact, Normal Color, No Rash, Cool, Diaphoretic (Feels clammy.) Course - Vital Signs Last Recorded V/S: Last Vital Signs Temp 36.3 C 10/14/19 08:05 Pulse 62 10/14/19 08:05 Resp 19 10/14/19 08:05 BP 118/62 10/14/19 08:05 Pulse Ox 98 10/14/19 08:05 - Orders/Labs/Meds Orders: Active Orders 24 hr Category Date Time Status Chest 1V Frontal [CR] Stat Exams 10/14/19 08:23 Taken - Radiology Interpretation Free Text/Narrative:: 54-year-old female presents the ED for evaluation of severe paroxysmal cough. History of present illness suggest that she started become unwell October 04 with fever chills headache and cough. These symptoms are highly suggestive of influenza. She was seen at the walk-in clinic and diagnosed with a viral infection. Unclear when she was placed on amoxicillin 500-- 3 times a day which she started 2 days ago. She continues to have the paroxysmal cough but the headache is improved and appetite is slowly coming back. Cough is bad enough to interfere with her ability to sleep. She is cool and clammy to touch with no obvious fever. Lungs are clear to stage percussion at this time. Plan 1 view chest x-ray and influenza screen to be done. Suspect she is at the end of her influenza illness and still has the paroxysmal cough but is been 10 days of severe cough. Apparently an x-ray was done and at the time of initial evaluation on October 04 which is 10 days ago. - Re-Assessments/Exams Free Text/Narrative Re-Assessment/Exam: 10/14/19 08:50 portable chest x-ray reveals she is rotated slightly to the left. Silhouette is within normal limits. There is a diffuse vascular congestion pattern with no pneumonia. Influenza screen is negative. Patient will therefore be treated with for for bronchitis with doxycycline 100 mg twice daily for the next 10 days. She will discontinue amoxicillin since it is causing diarrhea. She'll be given pen test cough syrup 5 mils every 12 hours when necessary for cough relief and prednisone 20 mg by mouth twice daily for 5 days to provide relief of inflammation of the upper bronchial tubes and larynx. Departure - Departure Time of Disposition: 08:52 Disposition: Home, Self-Care 01 Condition: Fair Clinical Impression: Bronchitis - Discharge Information *PRESCRIPTION DRUG MONITORING PROGRAM REVIEWED*: Not Applicable *COPY OF PRESCRIPTION DRUG MONITORING REPORT IN PATIENT OLMAN: Not Applicable Prescriptions: Doxycycline [Vibramycin] 100 mg PO BID #20 cap Hydrocodone/Chlorphen P-Stirex [Hydrocodone-Chlorphen ER Susp] 5 ml PO Q12H PRN #60 ml PRN Reason: cough relief predniSONE [Prednisone] 20 mg PO BID #10 tablet Referrals: Sharlene Landaverde, MOLD PRESS OPERATOR [Primary Care Provider] - Forms: ED Department Discharge, ED Return to Work/School Form Additional Instructions: Evaluation the emergent today in regards to persistent paroxysmal cough that is interfering with her sleep. This started a few days before Dinorah. It has persisted. Influenza screen done today is negative. Chest x-ray done today is also negative for pneumonia but does suggest a heavy bronchitis. Treatment is to be antibiotic.Cycrin 100 mg twice daily for the next 10 days to replace amoxicillin which appears to be causing diarrhea. Use Deltasone 20 mg twice daily with breakfast and supper for 5 days to relieve upper airway inflammation and to improve cough over the next 2-3 days. Cough syrup is to be patent as 5 mils every 12 hours as necessary for cough relief. Suggest use a good hour before planning to go to basilar takes about an hour to work. It should not be used if you're going to be driving a motor vehicle or operating machinery that requires a lot of focus. SPECT gradual improvement over the next 3 days. Sepsis Event Note - Evaluation Sepsis Screening Result: No Definite Risk - Focused Exam Vital Signs: Vital Signs Temp Pulse Resp BP Pulse Ox 10/14/19 08:05 36.3 C 62 19 118/62 98 Date Exam was Performed: 10/14/19 Time Exam was Performed: 08:50 - My Orders Last 24 Hours: My Active Orders 10/14/19 08:23 Chest 1V Frontal [CR] Stat - Assessment/Plan Last 24 Hours: My Active Orders 10/14/19 08:23 Chest 1V Frontal [CR] Stat
--- NOTE | 2019-10-14 09:20 | CR ---
Chest: Portable view of the chest was obtained. Comparison: Prior chest x-ray of 11/12/18. Heart size and mediastinum are normal. Previous cervical spine surgery is noted. Lungs are clear no acute parenchymal change. Bony structures are grossly intact. Impression: 1. Nothing acute is seen on portable chest x-ray. Diagnostic code #2 This report was dictated in Mountain Standard Time
== END 2019-10-14 09:08 | disposition home or self-care (01) ==
LOC: JD.ED 07:55
DX: J40 Bronchitis, not specified as acute or chronic (principal); I48.91 Unspecified atrial fibrillation; K21.9 Gastro-esophageal reflux disease without esophagitis; E03.9 Hypothyroidism, unspecified; E66.9 Obesity, unspecified; F32.9 Major depressive disorder, single episode, unspecified; Z88.1 Allergy status to other antibiotic agents; Z91.09 Other allergy status, other than to drugs and biological substances; Z88.2 Allergy status to sulfonamides; Z79.899 Other long term (current) drug therapy
CPT/HCPCS: 71045; 71045-26; 87804; 99283; 99283-25

== ENCOUNTER 2019-12-08 13:46 | Inpatient (IN) | payer BC ==
[2019-12-08] MEDS ORDERED: Sodium Chloride 0.9% 10 ML Syringe FLUSH PRN (14:31)
[2019-12-08] MEDS ORDERED: Diltiazem 50 MG/10 ML SDV IVPUSH ONE (14:32)
[2019-12-08] MEDS ORDERED: Diltiazem 125 MG in Sodium Chloride 0.9% 100 ML IV SCH (14:45)
[2019-12-08] MEDS ORDERED: Sodium Chloride 0.9% 1,000 ML IV SCH (14:45)
--- NOTE | 2019-12-08 16:16 | EDM.PDOC ---
ED HPI GENERAL MEDICAL PROBLEM - General Chief Complaint: Cardiovascular Problem Stated Complaint: AFIB Time Seen by Provider: 12/08/19 14:24 Source of Information: Reports: Patient History Limitations: Reports: No Limitations - History of Present Illness INITIAL COMMENTS - FREE TEXT/NARRATIVE: The patient presents in A-fib with a rapid ventricular response. She says this started about 30 minutes prior to coming in here. She has a history of A-fib. She is on eliquis and flecanide. She has not had trouble in awhile with A- fib. Usually she is in NSR. She has some tightness in her chest and shortness of breath. She has no fever, chills, cough, congestion, runny nose, abdomen pain, nausea or vomiting. Onset: Sudden Duration: Hour(s): (1/2 hour ago) Location: Reports: Chest Quality: Reports: Other (tightness) Severity: Mild Improves with: Reports: None Worsens with: Reports: None Associated Symptoms: Reports: Chest Pain, Shortness of Breath. 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 - Related Data Allergies Allergy/AdvReac Type Severity Reaction Status Date / Time adhesive tape Allergy Rash Verified 12/08/19 14:05 cephalexin [From Keflex] Allergy Cannot Verified 12/08/19 14:05 Remember clindamycin Allergy Hives Verified 12/08/19 14:05 Sulfa (Sulfonamide Allergy Cannot Verified 12/08/19 14:05 Antibiotics) Remember Home Meds: Home Meds Apixaban [Eliquis] 5 mg PO BID 08/22/17 [History] Flecainide Acetate 100 mg PO BID 08/22/17 [History] Levothyroxine [Synthroid] 50 mcg PO DAILY 08/22/17 [History] Docusate Sodium [Colace] 100 mg PO DAILY 10/04/17 [History] DULoxetine [Cymbalta] 90 mg PO DAILY 09/18/18 [History] Cholecalciferol (Vitamin D3) [Vitamin D3] 1,000 unit PO BEDTIME #30 tablet 09/19 [Rx] atorvaSTATin [Lipitor] 0 mg PO DAILY 12/08/19 [History] buPROPion [Wellbutrin] 75 mg PO DAILY 12/08/19 [History] Past Medical History Cardiovascular History: Reports: Afib, Blood Clots/VTE/DVT, High Cholesterol Respiratory History: Reports: Asthma Gastrointestinal History: Reports: GERD, Hiatal Hernia, Irritable Bowel Syndrome 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 History: Reports: UTI, Recurrent Other 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 History: hx of bladder infections 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: Musculoskeletal History: Reports: Back Pain, Chronic, Fibromyalgia, Osteoarthritis Other Musculoskeletal History: Spinal fusion and cervical spine fusion Neurological History: Reports: Headaches, Chronic Psychiatric History: Reports: Depression Endocrine/Metabolic History: Reports: Hypothyroidism, Obesity/BMI 30+, Vitamin D Deficiency Hematologic History: Reports: Anticoagulation Therapy Immunologic History: Reports: None Oncologic (Cancer) History: Reports: None Dermatologic History: Reports: None - Infectious Disease History Infectious Disease History: Reports: Chicken Pox - Past Surgical History HEENT Surgical History: Reports: Oral Surgery, Tonsillectomy GI Surgical History: Reports: Cholecystectomy, Hernia, Abdominal Female Surgical History: Reports: Section, Hysterectomy, Salpingo- Oophorectomy Neurological Surgical History: Reports: C-Spine, Lumbar Spine Musculoskeletal Surgical History: Reports: Knee Replacement Social & Family History - Family History Family Medical History: Noncontributory Respiratory: Reports: COPD Musculoskeletal: Reports: Other (See Below) Other Musculoskeletal Family History: brother has MS Endocrine/Metabolic: Reports: Diabetes, Type I Oncologic: Reports: Lung Other Oncologic Family History: mother of lung cancer - Tobacco Use Smoking Status *Q: Never Smoker - Caffeine Use Caffeine Use: Reports: None - Recreational Drug Use Recreational Drug Use: No - Living Situation & Occupation Living situation: Reports: , with Family (Father, sister) Occupation: Employed ([employer]) ED [facility] GENERAL - Review of Systems Review Of Systems: See Below Constitutional: Reports: No Symptoms HEENT: Reports: No Symptoms Respiratory: Reports: Shortness of Breath Cardiovascular: Reports: Chest Pain Endocrine: Reports: No Symptoms GI/Abdominal: Reports: No Symptoms : Reports: No Symptoms Musculoskeletal: Reports: No Symptoms Skin: Reports: No Symptoms ED EXAM, GENERAL - Physical Exam Exam: See Below Exam Limited By: No Limitations General Appearance: Alert, No Apparent Distress Ears: Normal External Exam Nose: Normal Inspection Head: Atraumatic, Normocephalic Neck: Normal Inspection Respiratory/Chest: No Respiratory Distress, Lungs Clear, Normal Breath Sounds Cardiovascular: No Edema, No Murmur, Tachycardia, Irregularly Irregular GI/Abdominal: Soft, Non-Tender, No Organomegaly, No Mass Back Exam: Normal Inspection Extremities: Normal Inspection EKG INTERPRETATION EKG Date: 12/08/19 Time: 13:52 Rhythm: A-Fib Rate (Beats/Min): 186 [place]: Normal QRS: Normal ST-T: Normal QT: Normal Course - Vital Signs Last Recorded V/S: Last Vital Signs Temp Pulse 110 H 12/08/19 16:05 Resp 19 12/08/19 16:05 BP 126/93 H 12/08/19 16:05 Pulse Ox 96 12/08/19 16:05 - Orders/Labs/Meds Orders: Active Orders 24 hr Category Date Time Status Cardiac Monitoring [RC] . DIRECTED Care 12/08/19 14:32 Active EKG 12 Lead [EKG Documentation Completion] [RC] ROUTINE Care 12/08/19 14:02 Active Peripheral IV Care [RC] . DIRECTED Care 12/08/19 14:32 Active Diltiazem 125 mg Med 12/08/19 14:45 Active Sodium Chloride 0.9% [Normal Saline] 100 ml IV TITRATE Sodium Chloride 0.9% [Normal Saline] 1,000 ml Med 12/08/19 14:45 Active IV ASDIRECTED Sodium Chloride 0.9% [Saline Flush] Med 12/08/19 14:31 Active 10 ml FLUSH ASDIRECTED PRN Peripheral IV Insertion Adult [OM.PC] Stat Oth 12/08/19 14:31 Ordered Medication Orders Diltiazem HCl 125 mg/ Sodium (Chloride) 125 mls @ 10 mls/hr IV TITRATE BRITTANY; Protocol Last Admin: 12/08/19 14:59 Dose: 10 mg/hr, 10 mls/hr Sodium Chloride (Normal Saline) 1,000 mls @ 125 mls/hr IV ASDIRECTED BRITTANY Last Admin: 12/08/19 14:40 Dose: 125 mls/hr Sodium Chloride (Saline Flush) 10 ml FLUSH ASDIRECTED PRN PRN Reason: Keep Vein Open Last Admin: 12/08/19 14:42 Dose: 10 ml Labs: Laboratory Tests 12/08/19 12/08/19 Range/Units 14:09 14:09 WBC 6.39 (3.98-10.04) K/mm3 RBC 4.78 (3.98-5.22) M/mm3 Hgb 14.1 (11.2-15.7) gm/dl Hct 42.1 (34.1-44.9) % MCV 88.1 D (79.4-94.8) fl MCH 29.5 (25.6-32.2) pg MCHC 33.5 (32.2-35.5) g/dl RDW Std Deviation 42.7 (36.4-46.3) fL Plt Count 278 (182-369) K/mm3 MPV 9.7 (9.4-12.3) fl Neut % (Auto) 61.7 (34.0-71.1) % Lymph % (Auto) 24.9 (19.3-51.7) % Lewis % (Auto) 10.6 (4.7-12.5) % Eos % (Auto) 2.3 (0.7-5.8) Baso % (Auto) 0.3 (0.1-1.2) % Neut # (Auto) 3.94 (1.56-6.13) K/mm3 Lymph # (Auto) 1.59 (1.18-3.74) K/mm3 Lewis # (Auto) 0.68 H (0.24-0.36) K/mm3 Eos # (Auto) 0.15 (0.04-0.36) K/mm3 Baso # (Auto) 0.02 (0.01-0.08) K/mm3 Sodium 145 (136-145) mEq/L Potassium 4.0 (3.5-5.1) mEq/L Chloride 107 (98-107) mEq/L Carbon Dioxide 27 (21-32) mEq/L Anion Gap 15.0 (5-15) BUN 30 H (7-18) mg/dL Creatinine 1.3 H (0.55-1.02) mg/dL Est Cr Clr Drug Dosing 47.39 mL/min Estimated GFR (MDRD) 43 (>60) mL/min BUN/Creatinine Ratio 23.1 H (14-18) Glucose 147 H (74-106) mg/dL Calcium 9.6 (8.5-10.1) mg/dL Total Bilirubin 0.4 (0.2-1.0) mg/dL AST 22 (15-37) U/L ALT 35 (14-59) U/L Alkaline Phosphatase 92 (46-116) U/L Troponin I < 0.017 (0.00-0.056) ng/mL Total Protein 7.4 (6.4-8.2) g/dl Albumin 3.9 (3.4-5.0) g/dl Globulin 3.5 gm/dL Albumin/Globulin Ratio 1.1 (1-2) TSH 3rd Generation 3.973 H (0.358-3.74) uIU/mL Meds: Medications Generic Name Dose Route Start Last Admin Trade Name Freq PRN Reason Stop Dose Admin Diltiazem HCl 125 mg/ Sodium 125 mls @ 10 mls/hr 12/08/19 14:45 12/08/19 14: 59 Chloride IV 10 mg/hr TITRATE BRITTANY 10 mls/hr Administration Protocol 10 MG/HR Sodium Chloride 1,000 mls @ 125 mls/hr 12/08/19 14:45 12/08/19 14:40 Normal Saline IV 125 mls/hr ASDIRECTED BRITTANY Administration Sodium Chloride 10 ml 12/08/19 14:31 12/08/19 14:42 Saline Flush FLUSH 10 ml ASDIRECTED PRN Administration Keep Vein Open Discontinued Medications Generic Name Dose Route Start Last Admin Trade Name Freq PRN Reason Stop Dose Admin Diltiazem HCl 10 mg 12/08/19 14:32 12/08/19 14:40 Cardizem IVPUSH 12/08/19 14:33 10 mg ONETIME ONE Administration Ibutilide Fumarate 1 mg 12/08/19 16:23 12/08/19 16:31 Corvert IVPUSH 12/08/19 16:24 1 mg ONETIME ONE Administration - Re-Assessments/Exams Free Text/Narrative Re-Assessment/Exam: 12/08/19 16:16 I ordered an IV NS at 125ml/hr, EKG, labs, cardizem bolus of 10mg IV and a drip at 10mg/hr. Her EKG shows atrial fibrillation with no acute changes and a rapid rate of 186. Her CBC looks good. Her creatinine is elevated at 1.3. Her glucose is 147. Her troponin is negative. Her TSH is slightly elevated at 3.973. Her heart rate is better but she still has not converted. 12/08/19 17:13 I ordered some corvert and she did not convert. Her rate is around 110 to 115. I feel she will need to be admitted. I called Dr Willson and he agreed to the admission. Departure - Departure Time of Disposition: 17:20 Disposition: Admitted As Inpatient 68 Condition: Fair Clinical Impression: Atrial fibrillation with RVR Referrals: Sharlene Landaverde MOTOR POLARIZER [Primary Care Provider] - Forms: ED Department Discharge Sepsis Event Note - Evaluation Sepsis Screening Result: No Definite Risk - Focused Exam Vital Signs: Vital Signs Pulse Resp BP Pulse Ox 12/08/19 16:05 110 H 19 126/93 H 96 12/08/19 13:53 186 H 18 119/67 93 L Date Exam was Performed: 12/08/19 Time Exam was Performed: 17:16 - My Orders Last 24 Hours: My Active Orders 12/08/19 14:02 EKG 12 Lead [EKG Documentation Completion] [RC] ROUTINE 12/08/19 14:31 Sodium Chloride 0.9% [Saline Flush] 10 ml FLUSH ASDIRECTED PRN Peripheral IV Insertion Adult [OM.PC] Stat 12/08/19 14:32 Cardiac Monitoring [RC] . DIRECTED Peripheral IV Care [RC] . DIRECTED 12/08/19 14:45 Diltiazem 125 mg Sodium Chloride 0.9% [Normal Saline] 100 ml IV TITRATE Sodium Chloride 0.9% [Normal Saline] 1,000 ml IV ASDIRECTED - Assessment/Plan Last 24 Hours: My Active Orders 12/08/19 14:02 EKG 12 Lead [EKG Documentation Completion] [RC] ROUTINE 12/08/19 14:31 Sodium Chloride 0.9% [Saline Flush] 10 ml FLUSH ASDIRECTED PRN Peripheral IV Insertion Adult [OM.PC] Stat 12/08/19 14:32 Cardiac Monitoring [RC] . DIRECTED Peripheral IV Care [RC] . DIRECTED 12/08/19 14:45 Diltiazem 125 mg Sodium Chloride 0.9% [Normal Saline] 100 ml IV TITRATE Sodium Chloride 0.9% [Normal Saline] 1,000 ml IV ASDIRECTED
[2019-12-08] MEDS ORDERED: Ibutilide 1 MG/10 ML Vial IVPUSH ONE (16:23)
[2019-12-08] MEDS ORDERED: Acetaminophen 325 MG Tab PO PRN (19:24)
--- NOTE | 2019-12-08 19:27 | PCM.HP.2 ---
H&P History of Present Illness - General Date of Service: 12/08/19 Admit Problem/Dx: Admission Diagnosis/Problem Admission Diagnosis/Problem Atrial fibrillation - History of Present Illness Initial Comments - Free Text/Narative: 54-year-old female with history of atrial fibrillation presents to the emergency room after developing palpitations approximately 2 and half hours after taking Wellbutrin XL 150 mg. Patient takes flecainide at home 100 mg twice daily and was diagnosed with atrial fibrillation in July 2017. At that time she had a cardiac thrombus. She states that normally she is in sinus rhythm. Patient states that she suffers from depression and her primary care provider started her on Wellbutrin and the first dose was taken at 1100 hrs. this morning. 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 When she arrived in the emergency room her heart rate was up to 180 and was having some chest tightness and shortness of breath. Patient denies any recent fever, chills, congestion, upper respiratory tract symptoms, abdominal pain, nausea, vomiting, or dysuria. No increased lower extremity edema. In the emergency room she had a EKG that showed atrial fibrillation with a ventricular rate of 186 bpm. She was given Cardizem bolus and placed on a Cardizem drip at 10 mg/h. Corvert 1 mg was administered and it did not convert her back to sinus rhythm. Patient was then admitted to the ICU. In the ICU her ventricular rate was below 100. She would still go into the 120s with minimal activity. - Related Data Allergies/Adverse Reactions: Allergies Allergy/AdvReac Type Severity Reaction Status Date / Time adhesive tape Allergy Rash Verified 12/08/19 14:05 cephalexin [From Keflex] Allergy Cannot Verified 12/08/19 14:05 Remember clindamycin Allergy Hives Verified 12/08/19 14:05 Sulfa (Sulfonamide Allergy Cannot Verified 12/08/19 14:05 Antibiotics) Remember Home Medications: Home Meds Apixaban [Eliquis] 5 mg PO BID 08/22/17 [History] Flecainide Acetate 100 mg PO BID 08/22/17 [History] Levothyroxine [Synthroid] 50 mcg PO DAILY 08/22/17 [History] Docusate Sodium [Colace] 100 mg PO DAILY 10/04/17 [History] DULoxetine [Cymbalta] 90 mg PO DAILY 09/18/18 [History] Cholecalciferol (Vitamin D3) [Vitamin D3] 1,000 unit PO BEDTIME #30 tablet 09/19 [Rx] atorvaSTATin [Lipitor] 0 mg PO DAILY 12/08/19 [History] buPROPion [Wellbutrin] 75 mg PO DAILY 12/08/19 [History] Past Medical History Cardiovascular History: Reports: Afib, Blood Clots/VTE/DVT, High Cholesterol Respiratory History: Reports: Asthma Gastrointestinal History: Reports: GERD, Hiatal Hernia, Irritable Bowel Syndrome 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 History: Reports: UTI, Recurrent Other 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 History: hx of bladder infections [employer] History: Reports: Musculoskeletal History: Reports: Back Pain, Chronic, Fibromyalgia, Osteoarthritis Other Musculoskeletal History: Spinal fusion and cervical spine fusion Neurological History: Reports: Headaches, Chronic Psychiatric History: Reports: Depression Endocrine/Metabolic History: Reports: Hypothyroidism, Obesity/BMI 30+, Vitamin D Deficiency Hematologic History: Reports: Anticoagulation Therapy Immunologic History: Reports: None Oncologic (Cancer) History: Reports: None Dermatologic History: Reports: None - Infectious Disease History Infectious Disease History: Reports: Chicken Pox - Past Surgical History HEENT Surgical History: Reports: Oral Surgery, Tonsillectomy GI Surgical History: Reports: Cholecystectomy, Hernia, Abdominal Female Surgical History: Reports: Section, Hysterectomy, Salpingo- Oophorectomy Neurological Surgical History: Reports: C-Spine, Lumbar Spine Musculoskeletal Surgical History: Reports: Knee Replacement Social & Family History - Family History Family Medical History: Noncontributory Respiratory: Reports: COPD Musculoskeletal: Reports: Other (See Below) Other Musculoskeletal Family History: brother has MS Endocrine/Metabolic: Reports: Diabetes, Type I Oncologic: Reports: Lung Other Oncologic Family History: mother of lung cancer - Tobacco Use Smoking Status *Q: Never Smoker - Caffeine Use Caffeine Use: Reports: None - Recreational Drug Use Recreational Drug Use: No - Living Situation & Occupation Living situation: Reports: , with Family (Father, sister) 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 Exam - Exam Exam: See Below - Vital Signs Vital Signs: Last Vital Signs Temp 97.8 F 12/08/19 17:36 Pulse 104 H 12/08/19 18:00 Resp 17 12/08/19 18:00 BP 125/87 12/08/19 18:00 Pulse Ox 94 L 12/08/19 18:00 Weight: 250 lb - Exam General: Alert, Oriented, 4 HEENT: Conjunctiva Clear, Hearing Intact, Mucosa Moist & Naplate Neck: Supple, Trachea Midline Lungs: Clear to Auscultation, Normal Respiratory Effort Cardiovascular: Irregular Rhythm (Rate in the 90s) GI/Abdominal Exam: Normal Bowel Sounds, Soft, Non-Tender, No Organomegaly, No Distention, No Abnormal Bruit, No Mass, Pelvis Stable Extremities: Normal Inspection, Normal Range of Motion, Non-Tender, No Pedal Edema, Normal Capillary Refill Skin: Warm, Dry, Intact Neurological: Cranial Nerves Intact Neuro Extensive - Mental Status: Alert, Oriented x3, Normal Mood/Affect, Normal Cognition, Memory Intact Psychiatric: Alert, Normal Affect, Normal Mood - Patient Data Lab Results Last 24 hrs: Laboratory Results - last 24 hr 12/08/19 12/08/19 Range/Units 14:09 14:09 WBC 6.39 (3.98-10.04) K/mm3 RBC 4.78 (3.98-5.22) M/mm3 Hgb 14.1 (11.2-15.7) gm/dl Hct 42.1 (34.1-44.9) % MCV 88.1 D (79.4-94.8) fl MCH 29.5 (25.6-32.2) pg MCHC 33.5 (32.2-35.5) g/dl RDW Std Deviation 42.7 (36.4-46.3) fL Plt Count 278 (182-369) K/mm3 MPV 9.7 (9.4-12.3) fl Neut % (Auto) 61.7 (34.0-71.1) % Lymph % (Auto) 24.9 (19.3-51.7) % [place] % (Auto) 10.6 (4.7-12.5) % Eos % (Auto) 2.3 (0.7-5.8) Baso % (Auto) 0.3 (0.1-1.2) % Neut # (Auto) 3.94 (1.56-6.13) K/mm3 Lymph # (Auto) 1.59 (1.18-3.74) K/mm3 [place] # (Auto) 0.68 H (0.24-0.36) K/mm3 Eos # (Auto) 0.15 (0.04-0.36) K/mm3 Baso # (Auto) 0.02 (0.01-0.08) K/mm3 Sodium 145 (136-145) mEq/L Potassium 4.0 (3.5-5.1) mEq/L Chloride 107 (98-107) mEq/L Carbon Dioxide 27 (21-32) mEq/L Anion Gap 15.0 (5-15) BUN 30 H (7-18) mg/dL Creatinine 1.3 H (0.55-1.02) mg/dL Est Cr Clr Drug Dosing 47.39 mL/min Estimated GFR (MDRD) 43 (>60) mL/min BUN/Creatinine Ratio 23.1 H (14-18) Glucose 147 H (74-106) mg/dL Calcium 9.6 (8.5-10.1) mg/dL Total Bilirubin 0.4 (0.2-1.0) mg/dL AST 22 (15-37) U/L ALT 35 (14-59) U/L Alkaline Phosphatase 92 (46-116) U/L Troponin I < 0.017 (0.00-0.056) ng/mL Total Protein 7.4 (6.4-8.2) g/dl Albumin 3.9 (3.4-5.0) g/dl Globulin 3.5 gm/dL Albumin/Globulin Ratio 1.1 (1-2) TSH 3rd Generation 3.973 H (0.358-3.74) uIU/mL Result Diagrams: 12/08/19 14:09 12/08/19 14:09 Sepsis Event Note - Evaluation Sepsis Screening Result: No Definite Risk - Focused Exam Vital Signs: Vital Signs Temp Pulse Resp BP Pulse Ox 12/08/19 18:00 104 H 17 125/87 94 L 12/08/19 17:36 97.8 F 114 H 19 131/79 94 L 12/08/19 16:45 108 H 17 124/79 95 12/08/19 16:05 110 H 19 126/93 H 96 12/08/19 13:53 186 H 18 119/67 93 L Date Exam was Performed: 12/08/19 Time Exam was Performed: 19:39 Problem List Initiated/Reviewed/Updated: Yes Orders Last 24hrs: Active Orders 24 hr Category Date Time Status Admission Status [Patient Status] [ADT] Routine ADT 12/08/19 17:37 Active Cardiac Monitoring [RC] . DIRECTED Care 12/08/19 14:32 Active EKG 12 Lead [EKG Documentation Completion] [RC] ROUTINE Care 12/08/19 14:02 Active Oxygen Therapy [RC] PRN Care 12/08/19 19:24 Ordered Peripheral IV Care [RC] . DIRECTED Care 12/08/19 14:32 Active Up With Assistance [RC] ASDIRECTED Care 12/08/19 19:24 Ordered VTE/DVT Education [RC] PER UNIT ROUTINE Care 12/08/19 19:24 Ordered Vital Signs [RC] Q4H Care 12/08/19 19:24 Ordered Heart Healthy Diet [DIET] Diet 12/08/19 Dinner Ordered CBC WITH AUTO DIFF [HEME] AM Lab 12/09/19 05:11 Ordered COMPREHENSIVE METABOLIC PN,CMP [CHEM] AM Lab 12/09/19 05:11 Ordered MAGNESIUM [CHEM] AM Lab 12/09/19 05:11 Ordered Acetaminophen [Tylenol] Med 12/08/19 19:24 Ordered 975 mg PO Q6H PRN Apixaban [Eliquis] Med 12/08/19 21:00 Ordered 5 mg PO BID DULoxetine Med 12/09/19 09:00 Ordered 90 mg PO DAILY Diltiazem 125 mg Med 12/08/19 14:45 Active Sodium Chloride 0.9% [Normal Saline] 100 ml IV TITRATE Flecainide [Tambocor] Med 12/08/19 21:00 Ordered 100 mg PO BID Levothyroxine [Synthroid] Med 12/09/19 09:00 Ordered 50 mcg PO DAILY Sodium Chloride 0.9% [Normal Saline] 1,000 ml Med 12/08/19 14:45 Active IV ASDIRECTED Sodium Chloride 0.9% [Saline Flush] Med 12/08/19 14:31 Active 10 ml FLUSH ASDIRECTED PRN atorvaSTATin Med 12/09/19 09:00 Ordered 10 mg PO DAILY Peripheral IV Insertion Adult [OM.PC] Stat Oth 12/08/19 14:31 Ordered Resuscitation Status Routine Resus Stat 12/08/19 19:24 Ordered Medication Orders Apixaban (Eliquis) 5 mg PO BID [facility]ANY Flecainide Acetate (Tambocor) 100 mg PO BID [facility]ANY Diltiazem HCl 125 mg/ Sodium (Chloride) 125 mls @ 10 mls/hr IV TITRATE BRITTANY; Protocol Last Titration: 12/08/19 17:39 Dose: 10 mg/hr, 10 mls/hr Admin: 12/08/19 14:59 Dose: 10 mg/hr, 10 mls/hr Sodium Chloride (Normal Saline) 1,000 mls @ 125 mls/hr IV ASDIRECTED BRITTANY Last Admin: 12/08/19 14:40 Dose: 125 mls/hr Levothyroxine Sodium (Synthroid) 50 mcg PO DAILY [facility] Non-Formulary Medication (Atorvastatin) 10 mg PO DAILY [facility] Non-Formulary Medication (Duloxetine) 90 mg PO DAILY [facility] Sodium Chloride (Saline Flush) 10 ml FLUSH ASDIRECTED PRN PRN Reason: Keep Vein Open Last Admin: 12/08/19 14:42 Dose: 10 ml Assessment/Plan Comment:: Assessment * Atrial fibrillation with rapid ventricular response * Typically in sinus rhythm at home * Took Wellbutrin XL 150 mg approximately 2 and half hours before going in atrial fibrillation * On flecainide 100 mg twice daily and Eliquis 5 mg twice daily * Chest discomfort and shortness of breath resolved with improvement in her rate * Mildly decreased renal function * Acute versus acute on chronic * Old records available shows creatinine of approximately 1.1 with an estimated GFR of 53 to greater than 60 * Creatinine 1.3, BUN 30, estimated GFR 43, BUN to creatinine ratio 23.1 * Some prerenal component secondary to poor perfusion due to rapid ventricular response likely the cause of decreasing kidney function * Depression * On Cymbalta 90 mg daily * Started Wellbutrin XL 150 mg this morning * Hypothyroidism * TSH slightly elevated at 3.973. * Levothyroxine 50 mcg daily home dose Plan * Admit to ICU * Cardizem drip titrate to keep rate under 100 * Continue home meds of flecainide 100 mg twice daily, Eliquis 5 mg twice daily * Stop Wellbutrin * Continue Cymbalta and levothyroxine * Recheck CBC, CMP, and mag in the morning * Continue IV fluids at 100 mL an hour * Heart healthy diet * VTE prophylaxis with Eliquis * CODE STATUS: Full code * Anticipated length of stay 1 to 2 days - Mortality Measure Prognosis:: Good
[2019-12-08] MEDS ORDERED: Lactated Ringers 1,000 ML IV SCH (20:00)
[2019-12-08] MEDS: Apixaban 5 MG Tab PO SCH (20:03)
[2019-12-08] MEDS: Flecainide 50 MG Tab PO SCH (20:03)
[2019-12-09] MEDS ORDERED: Levothyroxine 50 MCG Tab PO SCH (06:00)
[2019-12-09] MEDS: Flecainide 50 MG Tab PO SCH (08:05)
[2019-12-09] MEDS: Apixaban 5 MG Tab PO SCH (08:05)
--- NOTE | 2019-12-09 08:26 | PCM.DCSUM1 ---
Discharge Summary - Hospital Course HPI Initial Comments: 54-year-old female with history of atrial fibrillation presents to the emergency room after developing palpitations approximately 2 and half hours after taking Wellbutrin XL 150 mg. Patient takes flecainide at home 100 mg twice daily and was diagnosed with atrial fibrillation in July 2017. At that time she had a cardiac thrombus. She states that normally she is in sinus rhythm. Patient states that she suffers from depression and her primary care provider started her on Wellbutrin and the first dose was taken at 1100 hrs. this morning. 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 When she arrived in the emergency room her heart rate was up to 180 and was having some chest tightness and shortness of breath. Patient denies any recent fever, chills, congestion, upper respiratory tract symptoms, abdominal pain, nausea, vomiting, or dysuria. No increased lower extremity edema. In the emergency room she had a EKG that showed atrial fibrillation with a ventricular rate of 186 bpm. She was given Cardizem bolus and placed on a Cardizem drip at 10 mg/h. Corvert 1 mg was administered and it did not convert her back to sinus rhythm. Patient was then admitted to the ICU. In the ICU her ventricular rate was below 100. She would still go into the 120s with minimal activity. Diagnosis: Stroke: No - Discharge Data Discharge Date: 12/09/19 Discharge Disposition: Home, Self-Care 01 Condition: Good - Referral to Home Health Primary Care Physician: Sharlene Landaverde NP - Patient Summary/Data Hospital Course: Patient was admitted to the ICU on a Cardizem drip. It was felt that the addition of Wellbutrin was the proximate cause of her going into atrial fibrillation. Patient had an uneventful hospitalization and converted to sinus rhythm at 2300 hrs. last night. She had the Cardizem drip stopped and maintained in sinus rhythm for the rest of her hospitalization. She was discharged the next morning. - Patient Instructions Diet: Heart Healthy Diet Other/Special Instructions: Follow up with PCP next week. Do NOT take Wellbutrin. - Discharge Plan *PRESCRIPTION DRUG MONITORING PROGRAM REVIEWED*: No *COPY OF PRESCRIPTION DRUG MONITORING REPORT IN PATIENT OLMAN: No Home Medications: Home Meds Apixaban [Eliquis] 5 mg PO BID 08/22/17 [History] Flecainide Acetate 100 mg PO BID 08/22/17 [History] Levothyroxine [Synthroid] 50 mcg PO DAILY 08/22/17 [History] Docusate Sodium [Colace] 100 mg PO DAILY 10/04/17 [History] DULoxetine [Cymbalta] 90 mg PO DAILY 09/18/18 [History] Cholecalciferol (Vitamin D3) [Vitamin D3] 1,000 unit PO BEDTIME #30 tablet 09/19 [Rx] atorvaSTATin [Lipitor] 10 mg PO DAILY 12/08/19 [History] Oxygen Therapy Mode: Room Air Patient Handouts: Atrial Fibrillation Forms: ED Department Discharge Referrals: Sharlene Landaverde NP [Primary Care Provider] - - Discharge Summary/Plan Comment DC Time >30 min.: Yes Discharge Summary/Plan Comment: Patient's length of stay was less than 24 hours secondary to on anticipated conversion to sinus rhythm. Patient took Wellbutrin XL which has metabolites with a half-life of over 30 hours and since this was likely the cause of her going into her A. fib it was not anticipated that she would convert to sinus rhythm so quickly. Patient was counseled to not take Wellbutrin. She will continue on her home medication of flecainide for rate control. Follow-up with primary care provider next week. - General Info Date of Service: 12/09/19 Admission Dx/Problem (Free Text: Admission Diagnosis/Problem Admission Diagnosis/Problem Atrial fibrillation Functional Status: Reports: Pain Controlled - Review of Systems General: Reports: No Symptoms HEENT: Reports: No Symptoms Pulmonary: Reports: No Symptoms Cardiovascular: Reports: No Symptoms Gastrointestinal: Reports: No Symptoms Musculoskeletal: Reports: No Symptoms - Patient Data Vitals - Most Recent: Last Vital Signs Temp 98.5 F 12/09/19 08:00 Pulse 63 12/09/19 05:05 Resp 18 12/09/19 08:00 BP 109/67 12/09/19 08:00 Pulse Ox 98 12/09/19 08:00 Weight - Most Recent: 251 lb I&O - Last 24 hours: Intake & Output 12/08/19 12/09/19 12/09/19 22:59 06:59 14:59 Intake Total 1781 Output Total 600 500 Balance -600 1281 Lab Results - Last 24 hrs: Laboratory Results - last 24 hr 12/08/19 12/08/19 12/09/19 Range/Units 14:09 14:09 04:47 WBC 6.39 4.28 (3.98-10.04) K/mm3 RBC 4.78 4.29 (3.98-5.22) M/mm3 Hgb 14.1 12.5 D (11.2-15.7) gm/dl Hct 42.1 38.8 (34.1-44.9) % MCV 88.1 D 90.4 (79.4-94.8) fl MCH 29.5 29.1 (25.6-32.2) pg MCHC 33.5 32.2 (32.2-35.5) g/dl RDW Std Deviation 42.7 43.3 (36.4-46.3) fL Plt Count 278 230 (182-369) K/mm3 MPV 9.7 9.7 (9.4-12.3) fl Neut % (Auto) 61.7 51.1 (34.0-71.1) % Lymph % (Auto) 24.9 28.3 (19.3-51.7) % [place] % (Auto) 10.6 15.9 H (4.7-12.5) % Eos % (Auto) 2.3 4.0 (0.7-5.8) Baso % (Auto) 0.3 0.7 (0.1-1.2) % Neut # (Auto) 3.94 2.19 (1.56-6.13) K/mm3 Lymph # (Auto) 1.59 1.21 (1.18-3.74) K/mm3 [place] # (Auto) 0.68 H 0.68 H (0.24-0.36) K/mm3 Eos # (Auto) 0.15 0.17 (0.04-0.36) K/mm3 Baso # (Auto) 0.02 0.03 (0.01-0.08) K/mm3 Manual Slide Review Abnormal smear Sodium 145 (136-145) mEq/L Potassium 4.0 (3.5-5.1) mEq/L Chloride 107 (98-107) mEq/L Carbon Dioxide 27 (21-32) mEq/L Anion Gap 15.0 (5-15) BUN 30 H (7-18) mg/dL Creatinine 1.3 H (0.55-1.02) mg/dL Est Cr Clr Drug Dosing 47.39 mL/min Estimated GFR (MDRD) 43 (>60) mL/min BUN/Creatinine Ratio 23.1 H (14-18) Glucose 147 H (74-106) mg/dL Calcium 9.6 (8.5-10.1) mg/dL Magnesium (1.8-2.4) mg/dl Total Bilirubin 0.4 (0.2-1.0) mg/dL AST 22 (15-37) U/L ALT 35 (14-59) U/L Alkaline Phosphatase 92 (46-116) U/L Troponin I < 0.017 (0.00-0.056) ng/mL Total Protein 7.4 (6.4-8.2) g/dl Albumin 3.9 (3.4-5.0) g/dl Globulin 3.5 gm/dL Albumin/Globulin Ratio 1.1 (1-2) TSH 3rd Generation 3.973 H (0.358-3.74) uIU/mL 12/09/19 Range/Units 04:47 WBC (3.98-10.04) K/mm3 RBC (3.98-5.22) M/mm3 Hgb (11.2-15.7) gm/dl Hct (34.1-44.9) % MCV (79.4-94.8) fl MCH (25.6-32.2) pg MCHC (32.2-35.5) g/dl RDW Std Deviation (36.4-46.3) fL Plt Count (182-369) K/mm3 MPV (9.4-12.3) fl Neut % (Auto) (34.0-71.1) % Lymph % (Auto) (19.3-51.7) % [place] % (Auto) (4.7-12.5) % Eos % (Auto) (0.7-5.8) Baso % (Auto) (0.1-1.2) % Neut # (Auto) (1.56-6.13) K/mm3 Lymph # (Auto) (1.18-3.74) K/mm3 [place] # (Auto) (0.24-0.36) K/mm3 Eos # (Auto) (0.04-0.36) K/mm3 Baso # (Auto) (0.01-0.08) K/mm3 Manual Slide Review Sodium 144 (136-145) mEq/L Potassium 4.4 (3.5-5.1) mEq/L Chloride 109 H (98-107) mEq/L Carbon Dioxide 27 (21-32) mEq/L Anion Gap 12.4 (5-15) BUN 22 H (7-18) mg/dL Creatinine 0.7 (0.55-1.02) mg/dL Est Cr Clr Drug Dosing 88.01 mL/min Estimated GFR (MDRD) > 60 (>60) mL/min BUN/Creatinine Ratio 31.4 H (14-18) Glucose 94 (74-106) mg/dL Calcium 8.7 (8.5-10.1) mg/dL Magnesium 2.0 (1.8-2.4) mg/dl Total Bilirubin 0.3 (0.2-1.0) mg/dL AST 19 (15-37) U/L ALT 28 (14-59) U/L Alkaline Phosphatase 74 (46-116) U/L Troponin I (0.00-0.056) ng/mL Total Protein 6.2 L (6.4-8.2) g/dl Albumin 3.1 L (3.4-5.0) g/dl Globulin 3.1 gm/dL Albumin/Globulin Ratio 1.0 (1-2) TSH 3rd Generation (0.358-3.74) uIU/mL Med Orders - Current: Current Medications Acetaminophen (Tylenol) 975 mg PO Q6H PRN PRN Reason: Pain (Mild 1-3)/fever Last Admin: 12/08/19 20:21 Dose: 975 mg Apixaban (Eliquis) 5 mg PO BID [facility] Last Admin: 12/09/19 08:05 Dose: 5 mg Duloxetine HCl (Cymbalta) 90 mg PO DAILY [facility] Last Admin: 12/09/19 08:05 Dose: 90 mg Flecainide Acetate (Tambocor) 100 mg PO BID [facility] Last Admin: 12/09/19 08:05 Dose: 100 mg Diltiazem HCl 125 mg/ Sodium (Chloride) 125 mls @ 10 mls/hr IV TITRATE BRITTANY; Protocol Last Titration: 12/08/19 23:00 Dose: 0 mg/hr, 0 mls/hr Lactated Ringer's (Ringers, Lactated) 1,000 mls @ 100 mls/hr IV ASDIRECTED [facility] Last Admin: 12/08/19 23:09 Dose: 100 mls/hr Levothyroxine Sodium (Synthroid) 50 mcg PO DAILY@0600 [facility] Last Admin: 12/09/19 05:15 Dose: 50 mcg Simvastatin (Zocor) 10 mg PO BEDTIME [facility] Sodium Chloride (Saline Flush) 10 ml FLUSH ASDIRECTED PRN PRN Reason: Keep Vein Open Last Admin: 12/08/19 14:42 Dose: 10 ml Discontinued Medications Diltiazem HCl (Cardizem) 10 mg IVPUSH ONETIME ONE Stop: 12/08/19 14:33 Last Admin: 12/08/19 14:40 Dose: 10 mg Sodium Chloride (Normal Saline) 1,000 mls @ 125 mls/hr IV ASDIRECTED [facility] Last Infusion: 12/08/19 20:39 Dose: 100 mls/hr Ibutilide Fumarate (Corvert) 1 mg IVPUSH ONETIME ONE Stop: 12/08/19 16:24 Last Admin: 12/08/19 16:31 Dose: 1 mg - Exam Quality Assessment: Denies: Supplemental Oxygen General: Reports: Alert, Oriented HEENT: Reports: Pupils Equal, Mucous Membr. Moist/[place] Neck: Reports: Supple Lungs: Reports: Clear to Auscultation, Normal Respiratory Effort Cardiovascular: Reports: Regular Rate, Regular Rhythm GI/Abdominal Exam: Normal Bowel Sounds, Soft, Non-Tender, No Organomegaly, No Distention, No Abnormal Bruit Extremities: Normal Inspection, Normal Range of Motion, Non-Tender, No Pedal Edema, Normal Capillary Refill Psy/Mental Status: Reports: Alert, Normal Affect, Normal Mood
[2019-12-09] MEDS ORDERED: DULoxetine 30 MG Cap PO SCH (09:00)
[2019-12-09] MEDS ORDERED: Simvastatin 10 MG Tab PO SCH (21:00)
== END 2019-12-09 09:24 | disposition home or self-care (01) | DRG 201 ==
LOC: JD.ED 13:46 → JD.ICU 17:37
PROVIDERS: ADMIT Family Medicine; ATTEND Family Medicine
DX: I48.91 Unspecified atrial fibrillation (principal); N17.9 Acute kidney failure, unspecified; F32.9 Major depressive disorder, single episode, unspecified; E78.00 Pure hypercholesterolemia, unspecified; J45.909 Unspecified asthma, uncomplicated; K21.9 Gastro-esophageal reflux disease without esophagitis; M79.7 Fibromyalgia; M19.90 Unspecified osteoarthritis, unspecified site; Z96.659 Presence of unspecified artificial knee joint; M54.9 Dorsalgia, unspecified; G89.29 Other chronic pain; E03.9 Hypothyroidism, unspecified; E66.9 Obesity, unspecified; E55.9 Vitamin D deficiency, unspecified; Z90.89 Acquired absence of other organs; Z90.49 Acquired absence of other specified parts of digestive tract; Z79.899 Other long term (current) drug therapy; Z88.1 Allergy status to other antibiotic agents; Z88.2 Allergy status to sulfonamides; Z79.01 Long term (current) use of anticoagulants; Z98.1 Arthrodesis status; Z90.710 Acquired absence of both cervix and uterus; Z90.79 Acquired absence of other genital organ(s); Z88.8 Allergy status to other drugs, medicaments and biological substances; Z90.721 Acquired absence of ovaries, unilateral
CPT/HCPCS: 36415; 80053; 83735; 84443; 84484; 85025; 93005; 93010; 96361; 96365; 96366; 96376; 99223; 99239; 99285; 99285-25; A9270-GY; J1742; J3490; J7030; J7050; J7120

== ENCOUNTER 2020-02-21 14:22 | Emergency (ER) | payer BC ==
--- NOTE | 2020-02-21 14:38 | EDM.PDOC ---
ED HPI GENERAL MEDICAL PROBLEM - General Chief Complaint: Chest Pain Stated Complaint: CHEST PAIN AND ARM PAIN X 2 DAYS Time Seen by Provider: 02/21/20 14:36 - History of Present Illness INITIAL COMMENTS - FREE TEXT/NARRATIVE: 54-year-old female presents the emergency room with intermittent chest pain and shortness of breath. This is been going on for about 2 days now according to the patient. She has intermittent chest pain and shortness of breath with the chest pain occasionally she has some arm pain but sometimes she has left arm pain without chest pain. Patient has a history of reflux and heartburn and takes Prilosec daily. She has a significant cardiac history of paroxysmal atrial fibrillation and does take Eliquis. She does not take aspirin. The patient can developed this discomfort wall resting or while being active. She does note that oftentimes she short of breath with activity. And she does note that the shortness of breath oftentimes is worse if she has it along with the chest pain. She cannot recall what triggers the chest pain she describes the chest pain as being sharp and lasting only a few seconds. It seems to start in the substernal and lower left chest but cannot really describe it ais radiating. The patient has had a stress test but does not recall when it has not been recent according to the patient. No significant family history for coronary artery disease. - Related Data Allergies Allergy/AdvReac Type Severity Reaction Status Date / Time adhesive tape Allergy Rash Verified 12/08/19 20:15 cephalexin [From Keflex] Allergy Cannot Verified 12/08/19 20:15 Remember clindamycin Allergy Hives Verified 12/08/19 20:15 Sulfa (Sulfonamide Allergy Cannot Verified 12/08/19 20:15 Antibiotics) Remember Home Meds: Home Meds Apixaban [Eliquis] 5 mg PO BID 08/22/17 [History] Flecainide Acetate 100 mg PO BID 08/22/17 [History] Levothyroxine [Synthroid] 50 mcg PO DAILY 08/22/17 [History] Docusate Sodium [Colace] 100 mg PO DAILY 10/04/17 [History] DULoxetine [Cymbalta] 60 mg PO DAILY 09/18/18 [History] Cholecalciferol (Vitamin D3) [Vitamin D3] 1,000 unit PO BEDTIME #30 tablet 09/19 [Rx] atorvaSTATin [Lipitor] 10 mg PO DAILY 12/08/19 [History] Omeprazole Magnesium [Prilosec Otc] 20 mg PO DAILY 02/21/20 [History] busPIRone [Buspar] 10 mg PO BID 02/21/20 [History] hydrOXYzine HCL [Atarax] 10 mg PO QID PRN 02/21/20 [History] Past Medical History Cardiovascular History: Reports: Afib, Blood Clots/VTE/DVT, High Cholesterol Respiratory History: Reports: Asthma Gastrointestinal History: Reports: GERD, Hiatal Hernia, Irritable Bowel Syndrome 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 History: Reports: UTI, Recurrent Other 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 History: 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: Musculoskeletal History: Reports: Back Pain, Chronic, Fibromyalgia, Osteoarthritis Other Musculoskeletal History: Spinal fusion and cervical spine fusion Neurological History: Reports: Headaches, Chronic Psychiatric History: Reports: Depression Endocrine/Metabolic History: Reports: Hypothyroidism, Obesity/BMI 30+, Vitamin D Deficiency Hematologic History: Reports: Anticoagulation Therapy Immunologic History: Reports: None Oncologic (Cancer) History: Reports: None Dermatologic History: Reports: None - Infectious Disease History Infectious Disease History: Reports: Chicken Pox - Past Surgical History HEENT Surgical History: Reports: Oral Surgery, Tonsillectomy Cardiovascular Surgical History: Reports: None Respiratory Surgical History: Reports: None GI Surgical History: Reports: Cholecystectomy, Hernia, Abdominal Female Surgical History: Reports: Section, Hysterectomy, Salpingo- Oophorectomy Neurological Surgical History: Reports: C-Spine, Lumbar Spine Musculoskeletal Surgical History: Reports: Knee Replacement Social & Family History - Family History Family Medical History: Noncontributory Respiratory: Reports: COPD Musculoskeletal: Reports: Other (See Below) Other Musculoskeletal Family History: brother has MS Endocrine/Metabolic: Reports: Diabetes, Type I Oncologic: Reports: Lung Other Oncologic Family History: mother of lung cancer - Caffeine Use Caffeine Use: Reports: Soda - Living Situation & Occupation Living situation: Reports: , with Family (Father, sister) Occupation: Employed ([employer] - Review of Systems Review Of Systems: See Below Constitutional: Reports: No Symptoms, Fever, Chills, Diaphoresis (She states she is sweaty all the time this is not new) HEENT: Reports: No Symptoms Respiratory: Reports: Shortness of Breath (With activity) Cardiovascular: Reports: Chest Pain (Intermittent with rest or activity but not reliable to always occur) Endocrine: Reports: No Symptoms GI/Abdominal: Reports: No Symptoms : Reports: No Symptoms Musculoskeletal: Reports: Other (Chronic muscle skeletal issues) Neurological: Reports: No Symptoms Psychiatric: Reports: No Symptoms ED EXAM, GENERAL - Physical Exam Exam: See Below Exam Limited By: No Limitations General Appearance: Alert, No Apparent Distress, Other (He is pain-free at this time and not having any breathing difficulties) Head: Atraumatic, Normocephalic Neck: Normal Inspection, Supple, Non-Tender, Full Range of Motion Respiratory/Chest: No Respiratory Distress, Lungs Clear, Normal Breath Sounds Cardiovascular: Regular Rate, Rhythm, No Edema, No Murmur GI/Abdominal: Normal Bowel Sounds, Soft, Non-Tender, Other (Obese) Back Exam: Normal Inspection. No: CVA Tenderness (L), CVA Tenderness (R) Extremities: Other (No sign of the left hand is unremarkable palpation reveals some discomfort in the left forearm medial aspect no signs of obvious injury neurovascular status of the extremity is intact) Psychiatric: Normal Affect, Normal Mood Skin Exam: Warm, Dry, Intact Lymphatic: No Adenopathy EKG INTERPRETATION EKG Date: 02/21/20 Rhythm: NSR [place]: Other (Normal to rightward axis) P-Wave: Present QRS: Other (Borderline Q's in the inferior lead) ST-T: Normal MT/PQ Interval: Borderline prolonged QT and QTC Comparison: NA - No Prior EKG EKG Interpretation Comments: Abnormal EKG No change from prior EKG on November 12, 2018 she has had others when she has been in A. fib with RVR not the best comparison. Course - Vital Signs Last Recorded V/S: Last Vital Signs Temp 37.0 C 02/21/20 14:35 Pulse 70 02/21/20 14:35 Resp 16 02/21/20 14:35 BP 122/60 02/21/20 14:35 Pulse Ox 100 02/21/20 14:35 - Orders/Labs/Meds Orders: Active Orders 24 hr Category Date Time Status EKG 12 Lead [EKG Documentation Completion] [RC] STAT Care 02/21/20 14:30 Active Labs: Laboratory Tests 02/21/20 02/21/20 02/21/20 Range/Units 14:45 14:45 14:45 WBC 4.95 (3.98-10.04) K/mm3 RBC 4.41 (3.98-5.22) M/mm3 Hgb 13.0 (11.2-15.7) gm/dl Hct 39.9 (34.1-44.9) % MCV 90.5 (79.4-94.8) fl MCH 29.5 (25.6-32.2) pg MCHC 32.6 (32.2-35.5) g/dl RDW Std Deviation 41.8 (36.4-46.3) fL Plt Count 243 (182-369) K/mm3 MPV 10.0 (9.4-12.3) fl Neut % (Auto) 54.2 (34.0-71.1) % Lymph % (Auto) 30.7 (19.3-51.7) % [place] % (Auto) 9.9 (4.7-12.5) % Eos % (Auto) 4.2 (0.7-5.8) Baso % (Auto) 0.8 (0.1-1.2) % Neut # (Auto) 2.68 (1.56-6.13) K/mm3 Lymph # (Auto) 1.52 (1.18-3.74) K/mm3 [place] # (Auto) 0.49 H (0.24-0.36) K/mm3 Eos # (Auto) 0.21 (0.04-0.36) K/mm3 Baso # (Auto) 0.04 (0.01-0.08) K/mm3 PT 10.0 (9.7-12.0) SECONDS INR 0.93 APTT 28 (22-31) SECONDS Sodium 143 (136-145) mEq/L Potassium 4.1 (3.5-5.1) mEq/L Chloride 105 (98-107) mEq/L Carbon Dioxide 30 (21-32) mEq/L Anion Gap 12.1 (5-15) BUN 19 H (7-18) mg/dL Creatinine 1.1 H (0.55-1.02) mg/dL Est Cr Clr Drug Dosing 56.00 mL/min Estimated GFR (MDRD) 52 (>60) mL/min BUN/Creatinine Ratio 17.3 (14-18) Glucose 92 (74-106) mg/dL Calcium 8.6 (8.5-10.1) mg/dL Total Bilirubin 0.5 (0.2-1.0) mg/dL AST 29 (15-37) U/L ALT 40 (14-59) U/L Alkaline Phosphatase 87 (46-116) U/L Troponin I < 0.017 (0.00-0.056) ng/mL NT-Pro-B Natriuret Pep (0-125) pg/mL Total Protein 6.8 (6.4-8.2) g/dl Albumin 3.5 (3.4-5.0) g/dl Globulin 3.3 gm/dL Albumin/Globulin Ratio 1.1 (1-2) TSH 3rd Generation 3.096 (0.358-3.74) uIU/mL 02/21/20 Range/Units 14:45 WBC (3.98-10.04) K/mm3 RBC (3.98-5.22) M/mm3 Hgb (11.2-15.7) gm/dl Hct (34.1-44.9) % MCV (79.4-94.8) fl MCH (25.6-32.2) pg MCHC (32.2-35.5) g/dl RDW Std Deviation (36.4-46.3) fL Plt Count (182-369) K/mm3 MPV (9.4-12.3) fl Neut % (Auto) (34.0-71.1) % Lymph % (Auto) (19.3-51.7) % [place] % (Auto) (4.7-12.5) % Eos % (Auto) (0.7-5.8) Baso % (Auto) (0.1-1.2) % Neut # (Auto) (1.56-6.13) K/mm3 Lymph # (Auto) (1.18-3.74) K/mm3 [place] # (Auto) (0.24-0.36) K/mm3 Eos # (Auto) (0.04-0.36) K/mm3 Baso # (Auto) (0.01-0.08) K/mm3 PT (9.7-12.0) SECONDS INR APTT (22-31) SECONDS Sodium (136-145) mEq/L Potassium (3.5-5.1) mEq/L Chloride (98-107) mEq/L Carbon Dioxide (21-32) mEq/L Anion Gap (5-15) BUN (7-18) mg/dL Creatinine (0.55-1.02) mg/dL Est Cr Clr Drug Dosing mL/min Estimated GFR (MDRD) (>60) mL/min BUN/Creatinine Ratio (14-18) Glucose (74-106) mg/dL Calcium (8.5-10.1) mg/dL Total Bilirubin (0.2-1.0) mg/dL AST (15-37) U/L ALT (14-59) U/L Alkaline Phosphatase (46-116) U/L Troponin I (0.00-0.056) ng/mL NT-Pro-B Natriuret Pep 67 (0-125) pg/mL Total Protein (6.4-8.2) g/dl Albumin (3.4-5.0) g/dl Globulin gm/dL Albumin/Globulin Ratio (1-2) TSH 3rd Generation (0.358-3.74) uIU/mL Meds: Medications Discontinued Medications Generic Name Dose Route Start Last Admin Trade Name Freq PRN Reason Stop Dose Admin Aspirin 324 mg 02/21/20 14:53 02/21/20 15:18 Aspirin PO 02/21/20 14:54 324 mg ONETIME ONE Administration - Re-Assessments/Exams Free Text/Narrative Re-Assessment/Exam: 02/21/20 16:11 Troponin proBNP are unremarkable. Chest x-ray shows no acute cardiopulmonary changes however heart is thought to be slightly enlarged. 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 Also the patient is on flecainide and it would be worthwhile to discuss the addition of a beta-ruiz low-dose with her being on the flecainide. Departure - Departure Time of Disposition: 16:26 Disposition: Home, Self-Care 01 Clinical Impression: Chest pain, Shortness of breath Referrals: Sharlene Landaverde NP [Primary Care Provider] - Forms: ED Department Discharge Additional Instructions: Return to the emergency room with any questions problems or worsening symptoms. Follow-up with your primary provider and find out when your last echocardiogram and stress test was done and see if would be beneficial to repeat them. On your chest x-ray it is suggestive of your heart being mildly enlarged and a recent echocardiogram may give us some insight to this. If either of these studies need to be repeated you should follow-up with your termite treater helper soon after these are done. If these test do not need to be repeated you should discuss with your termite treater helper if there is any benefit for you being on a beta- ruiz as you are taking flecainide. Add a baby aspirin enteric-coated to your daily medications. Take your other medications as previously prescribed. Sepsis Event Note - Focused Exam Vital Signs: Vital Signs Temp Pulse Resp BP Pulse Ox 02/21/20 14:35 37.0 C 70 16 122/60 100 Date Exam was Performed: 02/21/20 Time Exam was Performed: 16:11 - My Orders Last 24 Hours: My Active Orders 02/21/20 14:30 EKG 12 Lead [EKG Documentation Completion] [RC] STAT - Assessment/Plan Last 24 Hours: My Active Orders 02/21/20 14:30 EKG 12 Lead [EKG Documentation Completion] [RC] STAT
[2020-02-21] MEDS ORDERED: Aspirin 81 MG Tab.Chew PO ONE (14:53)
--- NOTE | 2020-02-21 15:17 | CR ---
Chest: Portable view of the chest was obtained. Comparison: Prior chest x-ray of 10/14/19. Heart size is felt to be slightly enlarged. Upper mediastinum is normal. Previous cervical spine surgery is seen. Lungs are clear with no acute parenchymal change. Impression: 1. Heart size felt to be slightly enlarged. Difficult to exclude early CHF. 2. Nothing acute is otherwise appreciated. Diagnostic code #3 This report was dictated in MDT
== END 2020-02-21 16:40 | disposition home or self-care (01) ==
LOC: JD.ED 14:22
DX: R07.9 Chest pain, unspecified (principal); R06.02 Shortness of breath; E78.00 Pure hypercholesterolemia, unspecified; I48.91 Unspecified atrial fibrillation; J45.909 Unspecified asthma, uncomplicated; K21.9 Gastro-esophageal reflux disease without esophagitis; F32.9 Major depressive disorder, single episode, unspecified; E03.9 Hypothyroidism, unspecified; E66.9 Obesity, unspecified; Z68.41 Body mass index [BMI] 40.0-44.9, adult; Z79.01 Long term (current) use of anticoagulants; Z91.048 Other nonmedicinal substance allergy status; Z88.1 Allergy status to other antibiotic agents; Z88.2 Allergy status to sulfonamides; Z79.899 Other long term (current) drug therapy
CPT/HCPCS: 36415; 71045; 71045-26; 80053; 83880; 84443; 84484; 85025; 85610; 85730; 93005; 99285-25; A9270-GY

== ENCOUNTER 2020-12-13 23:50 | Emergency (ER) | payer BC ==
--- NOTE | 2020-12-14 00:02 | EDM.PDOC ---
ED HPI GENERAL MEDICAL PROBLEM - General Chief Complaint: Cardiovascular Problem Stated Complaint: RHB Time Seen by Provider: 12/14/20 00:01 - History of Present Illness INITIAL COMMENTS - FREE TEXT/NARRATIVE: 55-year-old female returns to emergency room with a rapid heart rate. Patient states she jumped back in atrial fibrillation around 10:00 this evening. Her rates been faster than normal. She has some substernal chest pressure and discomfort at times no breathing difficulties or shortness of breath. Patient has a history of paroxysmal atrial fibrillation she is currently on Eliquis she takes flecainide and metoprolol. She takes the flecainide on a regular basis. She is scheduled to see cardiology this next August. Patient has no other complaints at this time and was doing well up until 10:00 this evening. The patient is working on weight loss and has recently lost 12 pounds she is anticipating bariatric surgery. Chest Pain Score (Numeric/FACES): 5 - Related Data Allergies Allergy/AdvReac Type Severity Reaction Status Date / Time adhesive tape Allergy Rash Verified 12/14/20 00:06 cephalexin [From Keflex] Allergy Cannot Verified 12/14/20 00:06 Remember clindamycin Allergy Hives Verified 12/14/20 00:06 Sulfa (Sulfonamide Allergy Cannot Verified 12/14/20 00:06 Antibiotics) Remember Home Meds: Home Meds Apixaban [Eliquis] 5 mg PO BID 08/22/17 [History] Flecainide Acetate 100 mg PO BID 08/22/17 [History] Levothyroxine [Synthroid] 50 mcg PO DAILY 08/22/17 [History] Cholecalciferol (Vitamin D3) [Vitamin D3] 1,000 unit PO BEDTIME #30 tablet 09/19/18 [Rx] atorvaSTATin [Lipitor] 10 mg PO DAILY 12/08/19 [History] Omeprazole Magnesium [Prilosec Otc] 20 mg PO DAILY 02/21/20 [History] hydrOXYzine HCL [Atarax] 10 mg PO QID PRN 02/21/20 [History] Metoprolol Succinate [Toprol XL] 1 tab PO DAILY 12/14/20 [History] Venlafaxine [Effexor XR] 1 tab PO DAILY 12/14/20 [History] Past Medical History Cardiovascular History: Reports: Afib, Blood Clots/VTE/DVT, High Cholesterol Respiratory History: Reports: Asthma Gastrointestinal History: Reports: GERD, Hiatal Hernia, Irritable Bowel Syndrome 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 History: Reports: UTI, Recurrent Other 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 History: 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: Musculoskeletal History: Reports: Back Pain, Chronic, Fibromyalgia, Osteoarthritis Other Musculoskeletal History: Spinal fusion and cervical spine fusion Neurological History: Reports: Headaches, Chronic Psychiatric History: Reports: Depression Endocrine/Metabolic History: Reports: Hypothyroidism, Obesity/BMI 30+, Vitamin D Deficiency Hematologic History: Reports: Anticoagulation Therapy Immunologic History: Reports: None Oncologic (Cancer) History: Reports: None Dermatologic History: Reports: None - Infectious Disease History Infectious Disease History: Reports: Chicken Pox - Past Surgical History HEENT Surgical History: Reports: Oral Surgery, Tonsillectomy Cardiovascular Surgical History: Reports: None Respiratory Surgical History: Reports: None GI Surgical History: Reports: Cholecystectomy, Hernia, Abdominal Female Surgical History: Reports: Section, Hysterectomy, Salpingo- Oophorectomy Neurological Surgical History: Reports: C-Spine, Lumbar Spine Musculoskeletal Surgical History: Reports: Knee Replacement Social & Family History - Family History Family Medical History: No Pertinent Family History Respiratory: Reports: COPD Musculoskeletal: Reports: Other (See Below) Other Musculoskeletal Family History: brother has MS Endocrine/Metabolic: Reports: Diabetes, Type I Oncologic: Reports: Lung Other Oncologic Family History: mother of lung cancer - Caffeine Use Caffeine Use: Reports: Soda - Living Situation & Occupation Living situation: Reports: , with Family (Father, sister) Occupation: Employed ([employer]) [facility] - Review of Systems Review Of Systems: See Below Constitutional: Reports: No Symptoms HEENT: Reports: No Symptoms Respiratory: Reports: No Symptoms Cardiovascular: Reports: Chest Pain (She does not have routine chest pain only with A. fib that is rapid). Denies: Dyspnea on Exertion Endocrine: Reports: No Symptoms GI/Abdominal: Reports: No Symptoms : Reports: No Symptoms Musculoskeletal: Reports: No Symptoms Neurological: Reports: No Symptoms ED EXAM, GENERAL - Physical Exam Exam: See Below Exam Limited By: No Limitations General Appearance: Alert, No Apparent Distress Head: Atraumatic, Normocephalic Neck: Normal Inspection, Supple, Non-Tender, Full Range of Motion Respiratory/Chest: No Respiratory Distress, Lungs Clear, Normal Breath Sounds Cardiovascular: No Edema, No Murmur, Tachycardia, Irregularly Irregular GI/Abdominal: Normal Bowel Sounds, Soft, Non-Tender Extremities: Normal Inspection, No Pedal Edema Neurological: Alert, Oriented, Normal Cognition Course - Vital Signs Last Recorded V/S: Last Vital Signs Temp 36.3 C 12/14/20 00:03 Pulse 123 H 12/14/20 00:28 Resp 17 12/14/20 00:03 BP 131/74 12/14/20 00:28 Pulse Ox 90 L 12/14/20 00:03 - Orders/Labs/Meds Orders: Active Orders 24 hr Category Date Time Status EKG Documentation Completion [RC] STAT Care 12/14/20 00:14 Active Chest 1V Frontal [CR] Stat Exams 12/14/20 00:14 Taken Sodium Chloride 0.9% [Normal Saline] 1,000 ml Med 12/14/20 00:30 Active IV ASDIRECTED Medication Orders Sodium Chloride (Normal Saline) 1,000 mls @ 50 mls/hr IV ASDIRECTED BRITTANY Stop: 12/18/20 00:19 Last Admin: 12/14/20 00:28 Dose: 50 mls/hr Documented by: KIT Labs: Laboratory Tests 12/14/20 12/14/20 12/14/20 Range/Units 00:08 00:08 00:08 WBC 5.70 (3.98-10.04) K/mm3 RBC 4.67 (3.98-5.22) M/mm3 Hgb 13.8 (11.2-15.7) gm/dl Hct 41.5 (34.1-44.9) % MCV 88.9 (79.4-94.8) fl MCH 29.6 (25.6-32.2) pg MCHC 33.3 (32.2-35.5) g/dl RDW Std Deviation 43.0 (36.4-46.3) fL Plt Count 206 (182-369) K/mm3 MPV 10.9 (9.4-12.3) fl Neut % (Auto) 52.0 (34.0-71.1) % Lymph % (Auto) 33.9 (19.3-51.7) % [place] % (Auto) 10.4 (4.7-12.5) % Eos % (Auto) 3.2 (0.7-5.8) Baso % (Auto) 0.5 (0.1-1.2) % Neut # (Auto) 2.97 (1.56-6.13) K/mm3 Lymph # (Auto) 1.93 (1.18-3.74) K/mm3 [place] # (Auto) 0.59 H (0.24-0.36) K/mm3 Eos # (Auto) 0.18 (0.04-0.36) K/mm3 Baso # (Auto) 0.03 (0.01-0.08) K/mm3 Sodium 142 (136-145) mEq/L Potassium 3.6 (3.5-5.1) mEq/L Chloride 105 (98-107) mEq/L Carbon Dioxide 25 (21-32) mEq/L Anion Gap 15.6 H (5-15) BUN 26 H (7-18) mg/dL Creatinine 1.0 (0.55-1.02) mg/dL Est Cr Clr Drug Dosing 60.91 mL/min Estimated GFR (MDRD) 58 (>60) mL/min BUN/Creatinine Ratio 26.0 H (14-18) Glucose 99 (74-106) mg/dL Calcium 9.0 (8.5-10.1) mg/dL Magnesium 2.0 (1.8-2.4) mg/dl Total Bilirubin 0.3 (0.2-1.0) mg/dL AST 20 (15-37) U/L ALT 28 (14-59) U/L Alkaline Phosphatase 94 (46-116) U/L Troponin I < 0.017 (0.00-0.056) ng/mL Total Protein 7.1 (6.4-8.2) g/dl Albumin 3.9 (3.4-5.0) g/dl Globulin 3.2 gm/dL Albumin/Globulin Ratio 1.2 (1-2) Meds: Medications Generic Name Dose Route Start Last Admin Trade Name Freq PRN Reason Stop Dose Admin Sodium Chloride 1,000 mls @ 50 mls/hr 12/14/20 00:30 12/14/20 00:28 Normal Saline IV 12/18/20 00:19 50 mls/hr ASDIRECTED BRITTANY Administration Discontinued Medications Generic Name Dose Route Start Last Admin Trade Name Freq PRN Reason Stop Dose Admin Diltiazem HCl 10 mg 12/14/20 00:45 12/14/20 01:06 Cardizem IVPUSH 12/14/20 00:46 10 mg ONETIME ONE Administration Metoprolol Tartrate 5 mg 12/14/20 00:30 12/14/20 00:28 Lopressor IVPUSH 12/14/20 00:31 5 mg ONETIME ONE Administration - Re-Assessments/Exams Free Text/Narrative Re-Assessment/Exam: 12/14/20 03:41 Patient presents in atrial fibrillation with rapid ventricular response. She has a his port degree of paroxysmal atrial fibrillation and takes flecainide along with Toprol-XL for this. Patient was given 5 mg of IV Lopressor which did little this was followed up with 10 mg of IV diltiazem her rate slowed adequately. She is remained in a normal pulse rate however is still in atrial fib. Labs troponin electrolytes are normal, potassium is just a little on the low side of normal at 3.6 we will have her take 40 mEq p.o. before she leaves here. Case was discussed with Dr. Ovalles, on-call director chemistry at [place] who agrees with having her increase her Toprol-XL from 25 mg a day to 50 mg a day. And she should call their office for follow-up. Departure - Departure Time of Disposition: 03:45 Disposition: Home, Self-Care 01 Clinical Impression: Atrial fibrillation with RVR - Discharge Information Referrals: Sharlene Landaverde NP [Primary Care Provider] - Forms: ED Department Discharge Additional Instructions: Return to the emergency room with any questions problems or worsening symptoms. Increase your Toprol-XL to 50 mg a day from 25 mg a day. Continue the flecainide twice daily. Call cardiology at [place] to schedule a follow-up. [phone] Sepsis Event Note (ED) - Focused Exam Vital Signs: Vital Signs Temp Pulse Pulse Resp BP BP Pulse Ox 12/14/20 00:28 123 H 131/74 12/14/20 00:03 36.3 C 112 H 17 120/72 90 L - My Orders Last 24 Hours: My Active Orders 12/14/20 00:14 EKG Documentation Completion [RC] STAT Chest 1V Frontal [CR] Stat 12/14/20 00:30 Sodium Chloride 0.9% [Normal Saline] 1,000 ml IV ASDIRECTED - Assessment/Plan Last 24 Hours: My Active Orders 12/14/20 00:14 EKG Documentation Completion [RC] STAT Chest 1V Frontal [CR] Stat 12/14/20 00:30 Sodium Chloride 0.9% [Normal Saline] 1,000 ml IV ASDIRECTED
[2020-12-14] MEDS ORDERED: Metoprolol Tartrate 5 MG in Sodium Chloride 0.9% 50 ML IV ONE (00:15)
[2020-12-14] MEDS ORDERED: Sodium Chloride 0.9% 1,000 ML IV SCH (00:30)
[2020-12-14] MEDS ORDERED: Metoprolol Tartrate 5 MG/5 ML SDV IVPUSH ONE (00:30)
[2020-12-14] MEDS ORDERED: Diltiazem 50 MG/10 ML SDV IVPUSH ONE (00:45)
[2020-12-14] MEDS ORDERED: Potassium Chloride 20 MEQ Tab.ER PO ONE (03:43)
--- NOTE | 2020-12-14 08:34 | CR ---
Chest: Portable view of the chest was obtained. Comparison: Prior chest x-rays of 02/21/20 and 10/14/19. Heart size and mediastinum are normal. Lungs are clear with no acute parenchymal change. Prior cervical spine surgery is noted. No acute osseous finding is appreciated. Impression: 1. Findings as noted above. 2. Nothing acute is seen on portable chest x-ray. Diagnostic code #2
== END 2020-12-14 03:55 | disposition home or self-care (01) ==
LOC: JD.ED 23:50
DX: I48.91 Unspecified atrial fibrillation (principal); E78.00 Pure hypercholesterolemia, unspecified; J45.909 Unspecified asthma, uncomplicated; K21.9 Gastro-esophageal reflux disease without esophagitis; E03.9 Hypothyroidism, unspecified; E66.9 Obesity, unspecified; Z68.41 Body mass index [BMI] 40.0-44.9, adult; Z91.048 Other nonmedicinal substance allergy status; Z88.1 Allergy status to other antibiotic agents; Z88.2 Allergy status to sulfonamides; Z86.718 Personal history of other venous thrombosis and embolism; Z79.899 Other long term (current) drug therapy
CPT/HCPCS: 36415; 71045; 80053; 83735; 84484; 85025; 93005; 96374; 96375; 99285; A9270; J3490; J7030; 99284

== ENCOUNTER 2021-09-01 23:37 | Emergency (ER) | payer BC ==
[2021-09-02] MEDS ORDERED: Lactated Ringers 1,000 ML IV ONE (00:31)
--- NOTE | 2021-09-02 00:33 | EDM.PDOC ---
ED HPI GENERAL MEDICAL PROBLEM - General Chief Complaint: Chest Pain Stated Complaint: A FIB Time Seen by Provider: 09/02/21 00:33 Source of Information: Reports: Patient History Limitations: Reports: No Limitations - History of Present Illness INITIAL COMMENTS - FREE TEXT/NARRATIVE: Patient is a 56-year-old female presenting to the emergency room with a chief complaint of palpitations. Onset of palpitations was just after eating dinner. Patient reports some associated mid sharp chest pain. She does not feel short of breath, nauseous, diaphoretic. Immediately when she felt his palpitations, she did take her metoprolol, Eliquis, flecainide. She waited for a while and did not feel the palpitations improved so she came into the emergency room. She states she has a longstanding history of atrial fibrillation. This time, she does not feel lightheaded, dizzy or have syncopal episode. After arriving to the emergency room, her symptoms did resolve. Denies recent hospitalizations, calf pain, calf swelling, history of DVT or PE. Chest Pain Score (Numeric/FACES): 10 - Related Data Allergies Allergy/AdvReac Type Severity Reaction Status Date / Time adhesive tape Allergy Rash Verified 09/01/21 23:46 cephalexin [From Keflex] Allergy Cannot Verified 09/01/21 23:46 Remember clindamycin Allergy Hives Verified 09/01/21 23:46 Sulfa (Sulfonamide Allergy Cannot Verified 09/01/21 23:46 Antibiotics) Remember Home Meds: Home Meds Apixaban [Eliquis] 5 mg PO BID 08/22/17 [History] Flecainide Acetate 100 mg PO BID 08/22/17 [History] Levothyroxine [Synthroid] 50 mcg PO DAILY 08/22/17 [History] Cholecalciferol (Vitamin D3) [Vitamin D3] 1,000 unit PO BEDTIME #30 tablet 09/19/18 [Rx] atorvaSTATin [Lipitor] 10 mg PO DAILY 12/08/19 [History] hydrOXYzine HCL [Atarax] 10 mg PO QID PRN 02/21/20 [History] Metoprolol Succinate [Toprol XL] 1 tab PO BID 12/14/20 [History] Desvenlafaxine Succinate [Pristiq] 100 mg PO DAILY 09/01/21 [History] Past Medical History Cardiovascular History: Reports: Afib, Blood Clots/VTE/DVT, High Cholesterol Respiratory History: Reports: Asthma Gastrointestinal History: Reports: GERD, Hiatal Hernia, Irritable Bowel Syndrome 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 History: Reports: UTI, Recurrent Other 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 History: hx of bladder infections 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: Musculoskeletal History: Reports: Back Pain, Chronic, Fibromyalgia, Osteoarthritis Other Musculoskeletal History: Spinal fusion and cervical spine fusion Neurological History: Reports: Headaches, Chronic Psychiatric History: Reports: Depression Endocrine/Metabolic History: Reports: Hypothyroidism, Obesity/BMI 30+, Vitamin D Deficiency Hematologic History: Reports: Anticoagulation Therapy Immunologic History: Reports: None Oncologic (Cancer) History: Reports: None Dermatologic History: Reports: None - Infectious Disease History Infectious Disease History: Reports: Chicken Pox - Past Surgical History HEENT Surgical History: Reports: Oral Surgery, Tonsillectomy Cardiovascular Surgical History: Reports: None Respiratory Surgical History: Reports: None GI Surgical History: Reports: Bariatric Procedure, Cholecystectomy, Hernia, Abdominal Female Surgical History: Reports: Section, Hysterectomy, Salpingo- Oophorectomy Neurological Surgical History: Reports: C-Spine, Lumbar Spine Musculoskeletal Surgical History: Reports: Knee Replacement, Other (See Below) Other Musculoskeletal Surgeries/Procedures:: L trigger finger surgery Social & Family History - Family History Family Medical History: No Pertinent Family History Respiratory: Reports: COPD Musculoskeletal: Reports: Other (See Below) Other Musculoskeletal Family History: brother has MS Endocrine/Metabolic: Reports: Diabetes, Type I Oncologic: Reports: Lung Other Oncologic Family History: mother of lung cancer - Tobacco Use Tobacco Use Status *Q: Never Tobacco User - Caffeine Use Caffeine Use: Reports: Coffee - Recreational Drug Use Recreational Drug Use: No - Living Situation & Occupation Living situation: Reports: , with Family (Father, sister) Occupation: Employed ([employer]) ROS GENERAL - Review of Systems Review Of Systems: See Below Free Text/Narrative/Comment: In addition to that documented in the HPI above, the additional ROS was obtained: Constitutional: Denies fevers or chills Eyes: Denies vision changes ENMT: Denies sore throat CV: Per HPI Resp: Denies SOB GI: Denies vomiting or diarrhea : Denies painful urination MSK: Denies recent trauma Skin: Denies new rashes Neuro: Denies new numbness or tingling or weakness Endocrine: Denies unexpected weight loss Heme: Denies bleeding disorders ED EXAM, GENERAL - Physical Exam Exam: See Below Free Text/Narrative:: I have reviewed the triage vital signs Const: Well nourished, well developed, appears stated age Eyes: Pupils Equal and reactive to light bilaterally, no conjunctival injection HENT: No signs of trauma or swelling, Neck supple without meningismus CV: Regular Rate Rhythm, Warm, well-perfused extremities RESP: Unlabored respiratory effort GI: soft, non-tender, non-distended, no masses MSK: No gross deformities appreciated Skin: Warm, dry. 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 Sensation and motor function of extremities grossly intact. Psych: Appropriate mood and affect. #1 Interpretation EKG Date: 09/01/21 Time: 23:43 Rhythm: NSR Rate (Beats/Min): 108 [place]: Normal P-Wave: Present QRS: Normal ST-T: Depressed QT: Prolonged Comparison: No Change EKG Interpretation Comments: abnormal ekg, no changes from prior. no afib. sinus tachycardia #2 Interpretation EKG Date: 09/02/21 Time: 00:10 Rhythm: NSR Rate (Beats/Min): 61 [place]: Normal P-Wave: Present QRS: Normal ST-T: Depressed QT: Normal Comparison: Change From Previous EKG EKG Interpretation Comments: Sinus tachycardia has resolved. Anterior lateral ST depression exists. This was seen on previous EKG as well as on other past EKGs. Interpretation: Abnormal EKG. Course - Vital Signs Last Recorded V/S: Last Vital Signs Temp 36.0 C L 09/01/21 23:43 Pulse 110 H 09/01/21 23:43 Resp 17 09/01/21 23:43 BP 111/41 L 09/01/21 23:43 Pulse Ox 99 09/01/21 23:43 - Orders/Labs/Meds Orders: Active Orders 24 hr Category Date Time Status Chest 1V Frontal [CR] Stat Exams 09/01/21 23:49 Taken EKG 12 Lead [EK] Stat Ther 09/02/21 00:10 Ordered Labs: Laboratory Tests 09/01/21 09/01/21 09/01/21 Range/Units 23:44 23:44 23:44 WBC 6.14 (3.98-10.04) K/mm3 RBC 4.19 (3.98-5.22) M/mm3 Hgb 12.8 (11.2-15.7) gm/dl Hct 38.9 (34.1-44.9) % MCV 92.8 D (79.4-94.8) fl MCH 30.5 (25.6-32.2) pg MCHC 32.9 (32.2-35.5) g/dl RDW Std Deviation 44.0 (36.4-46.3) fL Plt Count 204 (182-369) K/mm3 MPV 10.8 (9.4-12.3) fl Neut % (Auto) 41.6 (34.0-71.1) % Lymph % (Auto) 42.7 (19.3-51.7) % [place] % (Auto) 10.3 (4.7-12.5) % Eos % (Auto) 4.9 (0.7-5.8) Baso % (Auto) 0.5 (0.1-1.2) % Neut # (Auto) 2.56 (1.56-6.13) K/mm3 Lymph # (Auto) 2.62 (1.18-3.74) K/mm3 [place] # (Auto) 0.63 H (0.24-0.36) K/mm3 Eos # (Auto) 0.30 (0.04-0.36) K/mm3 Baso # (Auto) 0.03 (0.01-0.08) K/mm3 PT 10.5 (9.7-12.0) SECONDS INR 0.94 D-Dimer, Quantitative 0.32 (0.19-0.50) mg/L Sodium 143 (136-145) mEq/L Potassium 3.8 (3.5-5.1) mEq/L Chloride 106 (98-107) mEq/L Carbon Dioxide 28 (21-32) mEq/L Anion Gap 12.8 (5-15) BUN 20 H (7-18) mg/dL Creatinine 1.1 H (0.55-1.02) mg/dL Est Cr Clr Drug Dosing 54.73 mL/min Estimated GFR (MDRD) 52 (>60) mL/min BUN/Creatinine Ratio 18.2 H (14-18) Glucose 138 H (70-99) mg/dL Calcium 8.8 (8.5-10.1) mg/dL Magnesium 1.9 (1.8-2.4) mg/dL Total Bilirubin 0.3 (0.2-1.0) mg/dL AST 65 H (15-37) U/L ALT 81 H (14-59) U/L Alkaline Phosphatase 101 (46-116) U/L Troponin I < 0.017 (0.00-0.056) ng/mL Total Protein 6.8 (6.4-8.2) g/dl Albumin 3.7 (3.4-5.0) g/dl Globulin 3.1 gm/dL Albumin/Globulin Ratio 1.2 (1-2) 09/02/21 Range/Units 01:50 WBC (3.98-10.04) K/mm3 RBC (3.98-5.22) M/mm3 Hgb (11.2-15.7) gm/dl Hct (34.1-44.9) % MCV (79.4-94.8) fl MCH (25.6-32.2) pg MCHC (32.2-35.5) g/dl RDW Std Deviation (36.4-46.3) fL Plt Count (182-369) K/mm3 MPV (9.4-12.3) fl Neut % (Auto) (34.0-71.1) % Lymph % (Auto) (19.3-51.7) % [place] % (Auto) (4.7-12.5) % Eos % (Auto) (0.7-5.8) Baso % (Auto) (0.1-1.2) % Neut # (Auto) (1.56-6.13) K/mm3 Lymph # (Auto) (1.18-3.74) K/mm3 [place] # (Auto) (0.24-0.36) K/mm3 Eos # (Auto) (0.04-0.36) K/mm3 Baso # (Auto) (0.01-0.08) K/mm3 PT (9.7-12.0) SECONDS INR D-Dimer, Quantitative (0.19-0.50) mg/L Sodium (136-145) mEq/L Potassium (3.5-5.1) mEq/L Chloride (98-107) mEq/L Carbon Dioxide (21-32) mEq/L Anion Gap (5-15) BUN (7-18) mg/dL Creatinine (0.55-1.02) mg/dL Est Cr Clr Drug Dosing mL/min Estimated GFR (MDRD) (>60) mL/min BUN/Creatinine Ratio (14-18) Glucose (70-99) mg/dL Calcium (8.5-10.1) mg/dL Magnesium (1.8-2.4) mg/dL Total Bilirubin (0.2-1.0) mg/dL AST (15-37) U/L ALT (14-59) U/L Alkaline Phosphatase (46-116) U/L Troponin I < 0.017 (0.00-0.056) ng/mL Total Protein (6.4-8.2) g/dl Albumin (3.4-5.0) g/dl Globulin gm/dL Albumin/Globulin Ratio (1-2) Meds: Medications Discontinued Medications Generic Name Dose Route Start Last Admin Trade Name Freq PRN Reason Stop Dose Admin Lactated Ringer's 1,000 mls @ 1,000 mls/hr 09/02/21 00:31 09/02/21 00:40 Ringers, Lactated IV 09/02/21 01:30 1,000 mls/hr .BOLUS ONE Administration Departure - Departure Time of Disposition: 02:53 Disposition: Home, Self-Care 01 Clinical Impression: Atypical chest pain, Palpitations Referrals: Sharlene Landaverde GEOLOGICAL TECHNICAL OFFICER [Primary Care Provider] - Forms: ED Department Discharge Additional Instructions: Please follow-up with your primary care physician on Friday. Return to the emergency room should your symptoms resume or if you have any other emergent concerns. Sepsis Event Note (ED) - Evaluation Sepsis Screening Result: Possible Sepsis Risk - Focused Exam Vital Signs: Vital Signs Temp Pulse Resp BP Pulse Ox 09/01/21 23:43 36.0 C L 110 H 17 111/41 L 99 - My Orders Last 24 Hours: My Active Orders 09/01/21 23:49 Chest 1V Frontal [CR] Stat 09/02/21 00:10 EKG 12 Lead [EK] Stat - Assessment/Plan Last 24 Hours: My Active Orders 09/01/21 23:49 Chest 1V Frontal [CR] Stat 09/02/21 00:10 EKG 12 Lead [EK] Stat Assessment:: Patient is a 56-year-old female presenting with palpitations. Initially, patient did present with sinus tachycardia but no atrial fibrillation. The sinus tachycardia did resolve spontaneously. This is likely secondary to patient's medication use prior to arrival. Differential diagnosis considered for this patient include ACS, pulmonary embolism, electrolyte abnormality, severe anemia. Her labs did not demonstrate any significant abnormality. Serial troponins were negative. Patient was offered IV fluids as she did have brief episode of hypotension but states she normally runs 90s over 60s for her blood pressure. She denied wanting any IV fluids. At this point, patient likely spontaneously converted from atrial fibrillation to a sinus rhythm. D- dimer is negative and does not require CT angiogram. No further work-up indicated at this time. Patient will be discharged with outpatient follow-up.
--- NOTE | 2021-09-02 08:52 | CR ---
Chest: Portable view of the chest was obtained. Comparison: Prior chest x-ray of 12/14/20. Heart size and mediastinum are within normal limits for portable technique. Lungs are clear with no acute parenchymal change. Prior cervical spine surgery is noted. No acute osseous abnormality is otherwise seen. Impression: 1. Nothing acute is seen on portable chest x-ray. Diagnostic code #2
== END 2021-09-02 03:00 | disposition home or self-care (01) ==
LOC: JD.ED 23:37
DX: R00.2 Palpitations (principal); R07.89 Other chest pain; R00.0 Tachycardia, unspecified; I48.91 Unspecified atrial fibrillation; E78.00 Pure hypercholesterolemia, unspecified; J45.909 Unspecified asthma, uncomplicated; E03.9 Hypothyroidism, unspecified; R94.31 Abnormal electrocardiogram [ECG] [EKG]; E66.9 Obesity, unspecified; Z68.34 Body mass index [BMI] 34.0-34.9, adult; Z91.048 Other nonmedicinal substance allergy status; Z88.1 Allergy status to other antibiotic agents; Z88.2 Allergy status to sulfonamides; Z79.01 Long term (current) use of anticoagulants; Z79.899 Other long term (current) drug therapy
CPT/HCPCS: 36415; 71045; 80053; 83735; 84484; 85025; 85379; 85610; 93005; 99285; J7120

== ENCOUNTER 2021-09-11 10:47 | Day surgery (SDC) | payer BC ==
[~2021-09-11 10:47] MED LIST: Cefuroxime 10 MG/ML SYRINGE EYERT SCH
--- NOTE | 2021-09-11 11:44 | PCM.PREANE ---
Preanesthetic Assessment - Procedure Proposed Procedure: Right eye cataract extraction and IOL - Anesthesia/Transfusion/Family Hx Type of Anesthesia Reaction: Excessive Nausea/Vomiting Family History of Anesthesia Reaction: No Transfusion History: Prior Transfusion Without Reaction Intubation History: Unknown - Review of Systems General: No Symptoms Pulmonary: No Symptoms Cardiovascular: No Symptoms Gastrointestinal: No Symptoms Neurological: No Symptoms Other: Reports: Easy Bruising, Thyroid Problems (hypothyroidism), Neck Pain, Depression, Anxiety - Physical Assessment NPO Status Date: 09/11/21 NPO Status Time: 08:00 Vital Signs: Last Vital Signs Temp 97.9 F 09/11/21 11:00 Pulse 56 L 09/11/21 11:00 Resp 16 09/11/21 11:00 BP 98/61 09/11/21 11:00 Pulse Ox 96 09/11/21 11:00 Height: 1.68 m Weight: 94.347 kg ASA Class: 2 Mental Status: Alert & Oriented x3 Airway Class: Mallampati = 2 Dentition: Reports: [place](s), Caries Thyro-Mental Finger Breadths: 2 Mouth Opening Finger Breadths: 2 ROM/Head Extension: Full Lungs: Clear to Auscultation, Normal Respiratory Effort Cardiovascular: Regular Rate, Regular Rhythm (Patient sounded regular during assessment. Patient states she goes in and out of Afib), No Murmurs - Allergies Allergies/Adverse Reactions: Allergies Allergy/AdvReac Type Severity Reaction Status Date / Time adhesive tape Allergy Rash Verified 09/11/21 11:13 cephalexin [From Keflex] Allergy Cannot Verified 09/11/21 11:13 Remember clindamycin Allergy Hives Verified 09/11/21 11:13 Sulfa (Sulfonamide Allergy Cannot Verified 09/11/21 11:13 Antibiotics) Remember - Anesthesia Plan Beta Blair: Metoprolol Med Last Dose Date: 09/11/21 Med Last Dose Time: 08:00 - Acknowledgements Anesthesia Type Planned: MAC Pt an Appropriate Candidate for the Planned Anesthesia: Yes Alternatives and Risks of Anesthesia Discussed w Pt/Guardian: Yes Pt/Guardian Understands and Agrees with Anesthesia Plan: Yes PreAnesthesia Questionnaire HEENT History: Reports: Allergic Rhinitis Cardiovascular History: Reports: Afib, Blood Clots/VTE/DVT, High Cholesterol Respiratory History: Reports: Asthma Gastrointestinal History: Reports: Hiatal Hernia, Irritable Bowel Syndrome 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 History: Reports: UTI, Recurrent Other 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 History: hx of bladder infections 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: Musculoskeletal History: Reports: Back Pain, Chronic, Fibromyalgia, Osteoarthritis Other Musculoskeletal History: Spinal fusion and cervical spine fusion Neurological History: Reports: Headaches, Chronic, Migraines Psychiatric History: Reports: Anxiety, Depression Endocrine/Metabolic History: Reports: Hypothyroidism, Obesity/BMI 30+, Vitamin D Deficiency Hematologic History: Reports: Anticoagulation Therapy Immunologic History: Reports: None Oncologic (Cancer) History: Reports: None Dermatologic History: Reports: None - Infectious Disease History Infectious Disease History: Reports: Chicken Pox - Past Surgical History HEENT Surgical History: Reports: Oral Surgery, Tonsillectomy Cardiovascular Surgical History: Reports: None Respiratory Surgical History: Reports: None GI Surgical History: Reports: Bariatric Procedure, Cholecystectomy, Hernia, Abdominal Female Surgical History: Reports: Section, Hysterectomy, Salpingo- Oophorectomy Neurological Surgical History: Reports: C-Spine, Lumbar Spine Musculoskeletal Surgical History: Reports: Knee Replacement, Other (See Below) Other Musculoskeletal Surgeries/Procedures:: L trigger finger surgery - SUBSTANCE USE Tobacco Use Status *Q: Never Tobacco User Second Hand Smoke Exposure: No Days Per Week of Alcohol Use: 0 Number of Drinks Per Day: 0 Total Drinks Per Week: 0 Recreational Drug Use History: No - HOME MEDS Home Medications: Home Meds Apixaban [Eliquis] 5 mg PO BID 08/22/17 [History] Flecainide Acetate 100 mg PO BID 08/22/17 [History] Levothyroxine [Synthroid] 50 mcg PO DAILY 08/22/17 [History] Cholecalciferol (Vitamin D3) [Vitamin D3] 1,000 unit PO BEDTIME #30 tablet 09/19/18 [Rx] atorvaSTATin [Lipitor] 10 mg PO DAILY 12/08/19 [History] hydrOXYzine HCL [Atarax] 10 mg PO QID PRN 02/21/20 [History] Metoprolol Succinate [Toprol XL] 1 tab PO BID 12/14/20 [History] Desvenlafaxine Succinate [Pristiq] 100 mg PO DAILY 09/01/21 [History] - CURRENT (IN HOUSE) MEDS Current Meds: Current Medications Brimonidine Tartrate (Brimonidine 0.2% Ophth Soln 5 Ml Bottle) 0 ml EYERT ASDIRECTED BRITTANY Stop: 09/11/21 16:00 Cefuroxime Sodium (Cefuroxime 10 Mg/Ml Syringe) 0 mg EYERT ASDIRECTED BRITTANY Lidocaine HCl (Lidocaine 1% Pf 2 Ml Sdv) 0 ml INJECT ASDIRECTED BRITTANY Stop: 09/11/21 16:00 Ofloxacin (Ofloxacin 0.3% Ophth Soln 5 Ml Bottle) 0 ml EYERT ASDIRECTED BRITTANY Stop: 09/11/21 18:00 Phenylephrine HCl (Phenylephrine 2.5% Ophth Soln 2 Ml Bot) 0 ml EYERT ASDIRECTED BRITTANY Stop: 09/11/21 16:00 Pilocarpine HCl (Pilocarpine 4% Ophth Soln 15 Ml Bot) 0 ml EYERT ASDIRECTED BRITTANY Stop: 09/11/21 16:00 Tetracaine HCl (Tetracaine Hcl/Pf 0.5% 4 Ml Bottle) 0 ml EYEBOTH ASDIRECTED BRITTANY Stop: 09/11/21 16:00 Tropicamide (Tropicamide 1% Ophth Soln 15 Ml Bottle) 0 ml EYERT ASDIRECTED BRITTANY Stop: 09/11/21 16:00
[2021-09-11] MEDS: Ofloxacin 0.3% Ophth Soln 5 ML Bottle EYERT SCH ×2 (11:45→12:20)
[2021-09-11] MEDS: Brimonidine 0.2% Ophth Soln 5 ML Bottle EYERT SCH ×4 (11:50→14:28)
[2021-09-11] MEDS: Phenylephrine 2.5% Ophth Soln 2 ML Bot EYERT SCH ×6 (11:54→14:27)
[2021-09-11] MEDS: Tropicamide 1% Ophth Soln 15 ML Bottle EYERT SCH ×4 (12:00→12:34)
[2021-09-11] MEDS: Tetracaine HCl/PF 0.5% 4 ML Bottle EYEBOTH SCH ×5 (12:48→14:28)
[2021-09-11] MEDS: Lidocaine 1% PF 2 ML SDV INJECT SCH ×2 (13:12→14:28)
[2021-09-11] MEDS: Polymyxin B/Trimethoprim 10 ML Bottle EYERT SCH ×2 (13:25→14:29)
[2021-09-11] MEDS: Pilocarpine 4% Ophth Soln 15 ML Bot EYERT SCH ×2 (13:25→14:29)
--- NOTE | 2021-09-11 13:26 | PCM48HPAN ---
Post Anesthesia Note - EVALUATION WITHIN 48HRS OF ANESTHETIC Vital Signs in Normal Range: Yes Patient Participated in Evaluation: Yes Respiratory Function Stable: Yes Airway Patent: Yes Cardiovascular Function Stable: Yes Hydration Status Stable: Yes Pain Control Satisfactory: Yes Nausea and Vomiting Control Satisfactory: Yes Mental Status Recovered: Yes Vital Signs: Last Vital Signs Temp 36.6 C 09/11/21 11:00 Pulse 56 L 09/11/21 11:00 Resp 16 09/11/21 11:00 BP 98/61 09/11/21 11:00 Pulse Ox 96 09/11/21 11:00
== END 2021-09-11 13:34 | disposition home or self-care (01) ==
LOC: JD.SDS 10:47
PROVIDERS: ATTEND Ophthalmology
DX: H25.813 Combined forms of age-related cataract, bilateral (principal); H16.223 Keratoconjunctivitis sicca, not specified as Sjogren's, bilateral; E03.9 Hypothyroidism, unspecified; E78.00 Pure hypercholesterolemia, unspecified; F32.A Depression, unspecified; Z98.890 Other specified postprocedural states; I48.91 Unspecified atrial fibrillation; Z79.899 Other long term (current) drug therapy; Z79.01 Long term (current) use of anticoagulants; Z88.2 Allergy status to sulfonamides
CPT/HCPCS: A9270-GY; C1780

== ENCOUNTER 2021-09-20 08:40 | Day surgery (SDC) | payer BC ==
[~2021-09-20 08:40] MED LIST changes: +Cefuroxime 10 MG/ML SYRINGE EYELF SCH; -Cefuroxime 10 MG/ML SYRINGE EYERT SCH
[2021-09-20] MEDS: Ofloxacin 0.3% Ophth Soln 5 ML Bottle EYELF SCH ×4 (10:09→11:28)
[2021-09-20] MEDS: Brimonidine 0.2% Ophth Soln 5 ML Bottle EYELF SCH ×4 (10:13→11:28)
[2021-09-20] MEDS: Phenylephrine 2.5% Ophth Soln 2 ML Bot EYELF SCH ×6 (10:16→11:17)
[2021-09-20] MEDS: Tropicamide 1% Ophth Soln 15 ML Bottle EYELF SCH ×4 (10:20→11:02)
--- NOTE | 2021-09-20 10:33 | PCM.PREANE ---
Preanesthetic Assessment - Procedure Proposed Procedure: Left Cataract Extraction with IOL - Anesthesia/Transfusion/Family Hx Anesthesia History: Prior Anesthesia Reaction Type of Anesthesia Reaction: Excessive Nausea/Vomiting Family History of Anesthesia Reaction: No Transfusion History: Prior Transfusion Without Reaction (transfusion in 1989) Intubation History: Unknown - Review of Systems General: No Symptoms Pulmonary: No Symptoms Cardiovascular: No Symptoms (History of Atrial Fibrillation: on eliquis), Palpitations, Dyspnea on Exertion, Lightheadedness (with RVR atrial fibrillation) Gastrointestinal: No Symptoms Neurological: No Symptoms (lower back pain with bilateral leg pains on occasion.), Headache Other: Reports: Easy Bleeding (on eliquis), Easy Bruising, Thyroid Problems (hypothyroid), Sinus Problem (deviated septum), Neck Pain (no pain but neck fusion noted: C3-5.), Depression, Anxiety - Physical Assessment NPO Status Date: 09/19/21 NPO Status Time: 22:00 Vital Signs: HR: 45 Sat: 94% Temp: 97.8 B/P: 95/62 Resp: 16 Height: 1.68 m Weight: 92.986 kg ASA Class: 3 Mental Status: Alert & Oriented x3 Airway Class: Mallampati = 2 Dentition: Reports: Normal Dentition, Caries Thyro-Mental Finger Breadths: 3 Mouth Opening Finger Breadths: 3 ROM/Head Extension: Full Lungs: Clear to Auscultation, Normal Respiratory Effort Cardiovascular: Regular Rate, Regular Rhythm, No Murmurs, Irregular Rhythm - Allergies Allergies/Adverse Reactions: Allergies Allergy/AdvReac Type Severity Reaction Status Date / Time adhesive tape Allergy Rash Verified 09/19/21 17:46 cephalexin [From Keflex] Allergy Cannot Verified 09/19/21 17:46 Remember clindamycin Allergy Hives Verified 09/19/21 17:46 Sulfa (Sulfonamide Allergy Cannot Verified 09/19/21 17:46 Antibiotics) Remember - Anesthesia Plan Pre-Op Medication Ordered: Beta Blair Beta Blair: Metoprolol Med Last Dose Date: 09/20/21 Med Last Dose Time: 08:00 - Acknowledgements Anesthesia Type Planned: MAC Pt an Appropriate Candidate for the Planned Anesthesia: Yes Alternatives and Risks of Anesthesia Discussed w Pt/Guardian: Yes Pt/Guardian Understands and Agrees with Anesthesia Plan: Yes PreAnesthesia Questionnaire HEENT History: Reports: Allergic Rhinitis Cardiovascular History: Reports: Afib, Blood Clots/VTE/DVT, High Cholesterol Respiratory History: Reports: Asthma Gastrointestinal History: Reports: Hiatal Hernia, Irritable Bowel Syndrome 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 History: Reports: UTI, Recurrent Other 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 History: hx of bladder 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: Musculoskeletal History: Reports: Back Pain, Chronic, Fibromyalgia, Osteoarthritis Other Musculoskeletal History: Spinal fusion and cervical spine fusion Neurological History: Reports: Headaches, Chronic, Migraines Psychiatric History: Reports: Anxiety, Depression Endocrine/Metabolic History: Reports: Hypothyroidism, Obesity/BMI 30+, Vitamin D Deficiency Hematologic History: Reports: Anticoagulation Therapy Immunologic History: Reports: None Oncologic (Cancer) History: Reports: None Dermatologic History: Reports: None - Infectious Disease History Infectious Disease History: Reports: Chicken Pox - Past Surgical History HEENT Surgical History: Reports: Oral Surgery, Tonsillectomy Cardiovascular Surgical History: Reports: None Respiratory Surgical History: Reports: None GI Surgical History: Reports: Bariatric Procedure, Cholecystectomy, Hernia, Abdominal Female Surgical History: Reports: Section, Hysterectomy, Salpingo- Oophorectomy Neurological Surgical History: Reports: C-Spine, Lumbar Spine Musculoskeletal Surgical History: Reports: Knee Replacement, Other (See Below) Other Musculoskeletal Surgeries/Procedures:: L trigger finger surgery - HOME MEDS Home Medications: Home Meds Apixaban [Eliquis] 5 mg PO BID 08/22/17 [History] Flecainide Acetate 100 mg PO BID 08/22/17 [History] Levothyroxine [Synthroid] 50 mcg PO DAILY 08/22/17 [History] Cholecalciferol (Vitamin D3) [Vitamin D3] 1,000 unit PO BEDTIME #30 tablet 09/19/18 [Rx] atorvaSTATin [Lipitor] 10 mg PO DAILY 12/08/19 [History] hydrOXYzine HCL [Atarax] 10 mg PO QID PRN 02/21/20 [History] Metoprolol Succinate [Toprol XL] 1 tab PO BID 12/14/20 [History] Desvenlafaxine Succinate [Pristiq] 100 mg PO DAILY 09/01/21 [History] - CURRENT (IN HOUSE) MEDS Current Meds: Current Medications Brimonidine Tartrate (Brimonidine 0.2% Ophth Soln 5 Ml Bottle) 0 ml EYELF ASDIRECTED BRITTANY Stop: 09/20/21 18:00 Last Admin: 09/20/21 10:13 Dose: 1 drop Documented by: Lidocaine HCl (Lidocaine 1% Pf 2 Ml Sdv) 0 ml INJECT ASDIRECTED BRITTANY Stop: 09/20/21 18:00 Ofloxacin (Ofloxacin 0.3% Ophth Soln 5 Ml Bottle) 0 ml EYELF ASDIRECTED BRITTANY Stop: 09/20/21 18:00 Last Admin: 09/20/21 10:09 Dose: 1 drop Documented by: Phenylephrine HCl (Phenylephrine 2.5% Ophth Soln 2 Ml Bot) 0 ml EYELF ASDIRECTED BRITTANY Stop: 09/20/21 18:00 Last Admin: 09/20/21 10:26 Dose: 1 drop Documented by: Pilocarpine HCl (Pilocarpine 4% Ophth Soln 15 Ml Bot) 0 ml EYELF ASDIRECTED BRITTANY Stop: 09/20/21 18:00 Tetracaine HCl (Tetracaine Hcl/Pf 0.5% 4 Ml Bottle) 0 ml EYEBOTH ASDIRECTED BRITTANY Stop: 09/20/21 18:00 Tropicamide (Tropicamide 1% Ophth Soln 15 Ml Bottle) 0 ml EYELF ASDIRECTED BRITTANY Stop: 09/20/21 18:00 Last Admin: 09/20/21 10:20 Dose: 1 drop Documented by: Discontinued Medications Cefuroxime Sodium (Cefuroxime 10 Mg/Ml Syringe) 0 mg EYELF ASDIRECTED BRITTANY
[2021-09-20] MEDS: Tetracaine HCl/PF 0.5% 4 ML Bottle EYEBOTH SCH ×3 (11:06→11:17)
[2021-09-20] MEDS: Lidocaine 1% PF 2 ML SDV INJECT SCH ×2 (11:16→11:18)
[2021-09-20] MEDS: Pilocarpine 4% Ophth Soln 15 ML Bot EYELF SCH ×2 (11:18→11:28)
--- NOTE | 2021-09-20 11:28 | PCM48HPAN ---
Post Anesthesia Note - EVALUATION WITHIN 48HRS OF ANESTHETIC Vital Signs in Normal Range: Yes Patient Participated in Evaluation: Yes Respiratory Function Stable: Yes Airway Patent: Yes Cardiovascular Function Stable: Yes Hydration Status Stable: Yes Pain Control Satisfactory: Yes Nausea and Vomiting Control Satisfactory: Yes Mental Status Recovered: Yes
== END 2021-09-20 11:45 | disposition home or self-care (01) ==
LOC: JD.SDS 08:40
PROVIDERS: ATTEND Ophthalmology
DX: H25.812 Combined forms of age-related cataract, left eye (principal); H16.223 Keratoconjunctivitis sicca, not specified as Sjogren's, bilateral; F41.9 Anxiety disorder, unspecified; F32.A Depression, unspecified; E78.00 Pure hypercholesterolemia, unspecified; E03.9 Hypothyroidism, unspecified; I49.1 Atrial premature depolarization; Z88.8 Allergy status to other drugs, medicaments and biological substances; Z98.890 Other specified postprocedural states; Z79.899 Other long term (current) drug therapy; Z79.01 Long term (current) use of anticoagulants; Z79.890 Hormone replacement therapy; Z88.2 Allergy status to sulfonamides; Z96.1 Presence of intraocular lens
CPT/HCPCS: A9270-GY; C1780

== ENCOUNTER 2021-11-09 10:47 | Emergency (ER) | payer BC ==
[2021-11-09] MEDS ORDERED: Adenosine 6 MG/2 ML SDV ONE (11:11)
[2021-11-09] MEDS ORDERED: Adenosine 12 MG/4 ML SDV ONE (11:11)
[2021-11-09] MEDS ORDERED: Adenosine 6 MG/2 ML SDV IVPUSH ONE (11:13)
[2021-11-09] MEDS ORDERED: Sodium Chloride 0.9% 10 ML Syringe FLUSH PRN (11:13)
[2021-11-09] MEDS ORDERED: Sodium Chloride 0.9% 500 ML IV ONE (12:02)
[2021-11-09] MEDS ORDERED: Metoprolol Tartrate 25 MG Tab PO ONE (13:22)
== END 2021-11-09 13:44 | disposition home or self-care (01) ==
LOC: JD.ED 10:47
DX: I47.1 Supraventricular tachycardia (principal); E03.9 Hypothyroidism, unspecified; M19.90 Unspecified osteoarthritis, unspecified site; E66.9 Obesity, unspecified; Z68.33 Body mass index [BMI] 33.0-33.9, adult; Z91.048 Other nonmedicinal substance allergy status; Z88.1 Allergy status to other antibiotic agents; Z88.2 Allergy status to sulfonamides; Z79.01 Long term (current) use of anticoagulants; Z79.899 Other long term (current) drug therapy
CPT/HCPCS: 36415; 71045; 80053; 83735; 83880; 84484; 85025; 85379; 86140; 93005; 96374; 99285; A9270; J0153; J7030; 93010

== ENCOUNTER 2021-11-13 08:47 | Emergency (ER) | payer BC ==
[2021-11-13] MEDS ORDERED: Oxymetazoline 0.05% Nasal Spray 30 ML Bottle NAS ONE (10:29)
== END 2021-11-13 11:41 | disposition home or self-care (01) ==
LOC: JD.ED 08:47
DX: R04.0 Epistaxis (principal); E78.00 Pure hypercholesterolemia, unspecified; E03.9 Hypothyroidism, unspecified; E66.9 Obesity, unspecified; Z68.32 Body mass index [BMI] 32.0-32.9, adult; Z88.1 Allergy status to other antibiotic agents; Z88.2 Allergy status to sulfonamides; Z79.01 Long term (current) use of anticoagulants; Z79.899 Other long term (current) drug therapy
CPT/HCPCS: 36415; 80053; 85025; 85610; 85730; 99283; A9270

== ENCOUNTER 2023-02-26 15:15 | Emergency (ER) | payer BC, OTHER ==
[2023-02-26] MEDS ORDERED: Sodium Chloride 0.9% 10 ML Syringe FLUSH PRN (16:19)
[2023-02-26 16:50] LABS: BASOPHILS ABSOLUTE AUTO 0.04 K/mm3 (0.01-0.08); BASOPHILS PERCENT AUTO 0.9 % (0.1-1.2); EOSINOPHILS ABSOLUTE AUTO 0.41 K/mm3 (0.04-0.36); EOSINOPHILS PERCENT AUTO 9.5 (0.7-5.8); HEMATOCRIT 41.3 % (34.1-44.9); HEMOGLOBIN 13.7 gm/dl (11.2-15.7); LYMPHOCYTES ABSOLUTE AUTO 1.55 K/mm3 (1.18-3.74); MEAN CORPUSCULAR HEMOGLOBIN 31.6 pg (25.6-32.2); MEAN CORPUSCULAR HGB CONC 33.2 g/dl (32.2-35.5); MEAN CORPUSCULAR VOLUME 95.4 fl (79.4-94.8); MEAN PLATELET VOLUME 10.8 fl (9.4-12.3); MONOCYTES ABSOLUTE AUTO 0.45 K/mm3 (0.24-0.36); MONOCYTES PERCENT AUTO 10.5 % (4.7-12.5); NEUTROPHILS ABSOLUTE AUTO 1.85 K/mm3 (1.56-6.13); NEUTROPHILS PERCENT AUTO 43.1 % (34.0-71.1); PLATELET COUNT,PLT 202 K/mm3 (182-369); RED BLOOD CELL COUNT 4.33 M/mm3 (3.98-5.22)
[2023-02-26] MEDS: Sodium Chloride 0.9% 1,000 ML IV ONE (16:50)
[2023-02-26 17:08] LABS: A/G RATIO 1.1 (1-2); ALBUMIN 3.6 g/dl (3.4-5.0); ANION GAP 10.5 (5-15); BILIRUBIN TOTAL 0.3 mg/dL (0.2-1.0); CALCIUM 8.9 mg/dL (8.5-10.1); EST CRCL DRUG DOSING (CG) 59.51 mL/min; MAGNESIUM 2.1 mg/dL (1.8-2.4); POTASSIUM,K 4.5 mEq/L (3.5-5.1); PROTEIN TOTAL,TP 6.9 g/dl (6.4-8.2); TSH 1.145 uIU/mL (0.358-3.74)
== END 2023-02-26 18:32 | disposition home or self-care (01) ==
LOC: SUPCPDRO 15:15 → JD.ED 15:15
DX: R00.2 Palpitations (principal); R06.02 Shortness of breath; I48.91 Unspecified atrial fibrillation; E78.00 Pure hypercholesterolemia, unspecified; J45.909 Unspecified asthma, uncomplicated; M19.90 Unspecified osteoarthritis, unspecified site; E03.9 Hypothyroidism, unspecified; E66.9 Obesity, unspecified; Z68.30 Body mass index [BMI] 30.0-30.9, adult; Z88.8 Allergy status to other drugs, medicaments and biological substances; Z88.1 Allergy status to other antibiotic agents; Z88.2 Allergy status to sulfonamides; Z91.048 Other nonmedicinal substance allergy status; Z79.899 Other long term (current) drug therapy; Z79.01 Long term (current) use of anticoagulants
CPT/HCPCS: 36415; 71045; 80053; 83735; 84443; 85025; 93005; 99285; J7030